=== PATIENT | female | born 1990 | race Caucasian/White ===

== ENCOUNTER 2020-02-28 19:35 | Emergency (ER) | payer OTHER, SELFPAY ==
[2020-02-28 19:51] VITALS: BP 95/55; PULSE 74; RESP 14; TEMP 36.9; O2SAT 99
--- NOTE | 2020-02-28 19:52 | ED.WOUNDLAC ---
HPI - Wound/Laceration General Chief Complaint: Skin/Abscess/Foreign Body Stated Complaint: cut leg Source: patient Mode of arrival: ambulatory Limitations: no limitations History of Present Illness HPI narrative: patient was moving all now however starters metal bed and she scraped her leg up against it. she has no injury anywhere other than her left leg . Onset (ago): minute(s) Extremity Location: Right: lower leg Place: home Patient tetanus UTD: No ( Patient is unsure if her tetanus is up-to-date or not) Context: accidental Associated symptoms: none Related Data Home Medications Medication Instructions Recorded Confirmed No Home Medications 02/28/20 02/28/20 Allergies Allergy/AdvReac Type Severity Reaction Status Date / Time No Known Allergies Allergy Verified 02/28/20 19:50 Review of Systems Review of Systems: All systems reviewed & are unremarkable except as noted in HPI and below Constitutional: Constitutional: Reports no additional constitutional complaints ENT: Reports system reviewed and no additional complaints, except as documented Cardiovascular: Cardiovascular: Reports no additional cardiovascular complaints Respiratory: Respiratory: Reports no additional respiratory complaints Gastrointestinal: Gastrointestinal: Reports no additional gastrointestinal complaints Musculoskeletal: Musculoskeletal: Reports no additional musculoskeletal complaints Comments: pain and bruising in right leg Neurologic: Reports system reviewed and no additional complaints, except as documented Psychiatric: Psychiatric: Reports no additional psychiatric complaints Endocrine: Endocrine: Reports no additional endocrine complaints Hematologic/Lymphatic: Hematologic/Lymphatic: Reports no additional hematologic/lymphatic complaints Allergic/Immunologic: Allergic/Immunologic: Reports no additional allergic/immunologic complaints [facility] Social History Social History (Updated 02/28/20 @ 19:54 by Pau Astudillo MD) Smoking status: Never smoker Alcohol intake: never Substance use: never Gender identity (if verbalized by the patient): Female Exam Const: General: no acute distress Eyes: Conjunctivae: conjunctivae normal Resp: Effort & Inspection: normal respiratory effort Skin: General skin exam: normal color Wounds: no wounds ( approximately 5 in long abrasion on the right leg there is some bruising ) Other: is approximately 5 in long abrasion to the right leg there is some bruising posterior to the abrasion however it is not a deep laceration and bleeding is controlled and there would be very little benefit from sutures Neuro: General: patient oriented x3 Psych: Appearance: grossly normal Mental Status: mental status grossly normal Thought content: Yes Normal thought content present Procedures Laceration Laceration 1: Date: 02/28/20 Time: 19:57 Site: other ( leg) Side (If applicable): right Description: linear Local Anesthetic: none Pre-repair: other ( wound clean with skin cleanser wound was very superficial no foreign bodies appreciated) ====== Skin Level ====== Skin layer closed with: steri strips ====== Subcutaneous Layer ====== ====== Muscle Layer ====== ====== Tendon Layer ====== Discharge Plan Discharge Clinical Impression: Abrasion hip/leg Qualifiers: Encounter type: initial encounter Laterality: right Qualified Code(s): S80.811A - Abrasion, right lower leg, initial encounter Patient Disposition: Home, Self-Care Condition: Stable Instructions: Antibiotic Form Prescriptions: No Action No Home Medications RF: 0 Follow-up/Referrals: Julia,MD Kojo [Primary Care Provider] - Time of Disposition: 20:00
[2020-02-28] MEDS: TETANUS,DIPHTHERIA,AC PERTUSSIS ADULT 0.5 ML (ADACEL) IM (19:59)
== END 2020-02-28 20:05 | disposition home or self-care (01) ==
PROVIDERS: Emergency Provider Emergency Medicine; PCP Family Medicine
DX: S80.811A Abrasion, right lower leg, initial encounter (principal); W45.8XXA Other foreign body or object entering through skin, initial encounter
CPT/HCPCS: 90471; 90715; 99282

== ENCOUNTER 2020-08-27 15:07 | Outpatient (CLI) | payer OTHER, SELFPAY ==
[2020-08-27 16:03] LABS: SARS-CoV-2 Ag Negative (Negative)
[2020-08-28] LABS: SARS-CoV-2 RNA PCR Negative
== END 2020-08-27 15:08 | disposition home or self-care (01) ==
LOC: CHSLAB 15:10
PROVIDERS: PCP Family Medicine; Visit Provider Nurse Practitioner Psychiatric/Mental Health
DX: J02.9 Acute pharyngitis, unspecified (principal)
CPT/HCPCS: 87426; C9803; U0003; U0005

== ENCOUNTER 2021-05-28 16:31 | Outpatient (CLI) | payer OTHER, SELFPAY ==
[2021-05-28 17:35] LABS: SARS-CoV-2 Ag Negative (Negative)
== END 2021-05-28 16:32 | disposition home or self-care (01) ==
LOC: CHSLAB 16:39
PROVIDERS: PCP Family Medicine; Visit Provider Nurse Practitioner Psychiatric/Mental Health
DX: Z11.59 Encounter for screening for other viral diseases (principal)
CPT/HCPCS: 87426; C9803

== ENCOUNTER 2021-11-12 14:56 | Emergency (ER) | payer OTHER, SELFPAY ==
--- NOTE | ~2021-11-12 | XR_ITS ---
EXAM: XR hand LT min 3V, XR forearm LT 2V HISTORY: pain @ lateral side of forearm/hand after fall today COMPARISON: None available FINDINGS: Normal mineralization. No fracture or dislocation. No lytic or blastic lesion. Joint space s maintained. No erosion or periosteal change. Soft tissues within normal limits. IMPRESSION: No acute osseous finding in the left hand or forearm. Reviewed, dictated and finalized at location K. IMPRESSION: No acute osseous finding in the left hand or forearm.
[2021-11-12 15:10] VITALS: BP 121/75; PULSE 83; RESP 20; TEMP 36.3; O2SAT 99
[2021-11-12] MEDS: ACETAMINOPHEN 325 MG TABLET 650 MG (15:41)
--- NOTE | 2021-11-12 15:59 | ED.UPPEXIN ---
HPI - Extremity Injury (Upper) General Chief Complaint: Extremity Injury, Upper Stated Complaint: LT arm injury Time Seen by Provider: 11/12/21 14:58 Source: patient and RN notes reviewed Mode of arrival: ambulatory Limitations: no limitations History of Present Illness complaint: injury to: left, forearm and hand Onset (ago): day(s) Other Extremity Injury: Left: forearm Other injuries: none Place: home Severity: mild Severity scale (1-10): 3 Relieving factors: cold therapy Exacerbating factors: movement of extremity Context: fall Associated symptoms: denies other symptoms Treatments prior to arrival: cold therapy Related Data Home Medications Medication Instructions Recorded Confirmed Suboxone 2 mg BYMOUTH DAILY 11/12/21 11/12/21 Allergies Allergy/AdvReac Type Severity Reaction Status Date / Time No Known Allergies Allergy Verified 02/28/20 19:50 Review of Systems Review of Systems: All systems reviewed & are unremarkable except as noted in HPI and below PMFSH Past Medical History Medical History Contusion of forearm, left Social History Social History Smoking status: Never smoker Alcohol intake: never Substance use: never Substance use type: former substance user Gender identity (if verbalized by the patient): Female Exam Const: General: cooperative, healthy appearing, no acute distress and awake Nutritional Appearance: thin Orientation/consciousness: patient oriented x3 Limitations: no limitations HENMT: Head: normal to inspection, normocephalic and atraumatic Ears: hearing grossly normal bilaterally, external ears normal, TM's normal bilaterally and EAC's normal General nose exam: Normal external nose present and Normal nares present Face and sinus: normal facial exam and sinuses nontender Mouth: Yes Normal oral and palatal mucosa present, Yes oropharynx normal and Yes moist mucous membranes Throat: posterior oropharynx normal Eyes: General: appearance normal, both eyes and all related structures Periorbital: periorbital findings normal Eyelids: eyelids normal Conjunctivae: conjunctivae normal Sclera: sclerae normal Cornea: corneas normal Pupils: Equal, round and reactive pupils present and Pupils normal by confrontation EOM: EOMs intact bilaterally Neck: Neck: normal visual inspection, full ROM and no lymphadenopathy Chest: Chest palpation & inspection: normal inspection of the chest and normal palpation of entire chest wall Resp: Effort & Inspection: normal respiratory effort and able to speak in complete sentences Auscultation: clear to auscultation bilaterally Cardio: Palpation: normal PMI Rate: regular rate Rhythm: regular rhythm Peripheral pulses: Peripheral pulses 2+ throughout GI: GI Palp: No abdominal tenderness Auscultation: normal bowel sounds : General: Yes bladder normal to inspection and Yes bladder normal to palpation Back/Spine/Pelvis: Back: no CVA tenderness Skin: General skin exam: normal color, no rashes or lesions noted and turgor normal Neuro: General: patient oriented x3 and moves all extremities Cognition (Neuro): normal cognition Speech: normal speech Gait exam (Neuro): Normal gait present Motor exam (neuro): 5/5 motor strength present throughout Extrem: General: full ROM, capillary refill normal and other (left palmar mid-shaft to distal forearm: minimally tender with no acute red) Right upper extremity: full ROM and normal capillary refill Psych: Appearance: grossly normal and well kempt Affect: normal affect Attitude: cooperative Thought process: Normal thought process present Thought content: Yes Normal thought content present Course Course Emergency Course: Pt was stable in the ED Reevaluation(s) Date: 11/12/21 Time: 15:32 Vital Signs Vital signs: Vital Signs Temperature 36.3 C L 11/12/21 15:10 Pulse Rate 83
[2021-11-12 16:24] VITALS: BP 121/75; PULSE 83; RESP 20; TEMP 36.3; O2SAT 99
== END 2021-11-12 16:26 | disposition home or self-care (01) ==
PROVIDERS: Emergency Provider Emergency Medicine; PCP Family Medicine
DX: S50.12XA Contusion of left forearm, initial encounter (principal); W19.XXXA Unspecified fall, initial encounter
CPT/HCPCS: 73090; 73130; 99283; A4565; A9270

== ENCOUNTER 2022-09-25 23:14 | Emergency (ER) | payer OTHER, SELFPAY ==
--- NOTE | 2022-09-25 23:22 | ED.ABDPAIN ---
HPI - Abdominal Pain General Chief Complaint: Abdominal Pain Stated Complaint: Right side abd pain Time Seen by Provider: 09/25/22 23:19 History of Present Illness HPI narrative: 32-year-old female patient is here with complaints of pain in the right abdomen for the last couple of days worse today. She has had mild nausea but no emesis. She has had normal bowel movement. She has had no urinary symptoms. She states that her appetite has normally been low because of her being under stress constantly. She denies any fever or chills. Patient states that they had a stomach flu bug going around the house in the last week or so. Patient describes the pain as dull ache and it does radiate to the more mid abdomen. Patient states that she is currently on Suboxone for having had opioid abuse in the past. She is also taking medications for her bipolar depression Related Data Home Medications Medication Instructions Recorded Confirmed Suboxone 2 mg BYMOUTH DAILY 11/12/21 11/12/21 bupropion HCl 300 mg 24 hr tablet, 300 mg PO DAILY 09/25/22 09/25/22 extended release hydroxyzine pamoate 25 mg capsule 25 mg PO TID 09/25/22 09/25/22 lamotrigine 25 mg tablet 25 mg PO DAILY 09/25/22 09/25/22 prazosin 1 mg capsule 1 mg PO DAILY 09/25/22 09/25/22 Allergies Allergy/AdvReac Type Severity Reaction Status Date / Time No Known Allergies Allergy Verified 02/28/20 19:50 Review of Systems Review of Systems: All systems reviewed & are unremarkable except as noted in HPI and below Constitutional: Constitutional: Reports no additional constitutional complaints Eyes: Eyes: Reports no additional eye complaints ENT: Reports system reviewed and no additional complaints, except as documented Cardiovascular: Cardiovascular: Reports no additional cardiovascular complaints Respiratory: Respiratory: Reports no additional respiratory complaints Gastrointestinal: Gastrointestinal: Reports no additional gastrointestinal complaints Genitourinary: Genitourinary: Reports no additional female genitourinary complaints Musculoskeletal: Musculoskeletal: Reports no additional musculoskeletal complaints Integumentary/Breasts: Skin/Breast: Reports system reviewed and no additional complaints, except as docu Neurologic: Reports system reviewed and no additional complaints, except as documented Psychiatric: Psychiatric: Reports anxiety Endocrine: Endocrine: Reports no additional endocrine complaints Hematologic/Lymphatic: Hematologic/Lymphatic: Reports no additional hematologic/lymphatic complaints Allergic/Immunologic: Allergic/Immunologic: Reports no additional allergic/immunologic complaints PMFSH Past Medical History Medical History Contusion of forearm, left Social History Social History Smoking status: Never smoker Alcohol intake: never Substance use: never Substance use type: former substance user Gender identity (if verbalized by the patient): Female Exam Const: General: healthy appearing, no acute distress and alert Nutritional Appearance: well nourished Orientation/consciousness: patient oriented x3 Limitations: no limitations HENMT: Head: normal to inspection Face and sinus: normal facial exam Mouth: Yes Normal oral and palatal mucosa present Teeth and gingiva: dentition normal Throat: posterior oropharynx normal Eyes: Conjunctivae: conjunctivae normal Pupils: Equal, round and reactive pupils present EOM: EOMs intact bilaterally Direct Ophthalmoscopy: no photophobia Neck: Neck: normal visual inspection Chest: Chest palpation & inspection: normal inspection of the chest Resp: Effort & Inspection: normal respiratory effort Auscultation: clear to auscultation bilaterally Cardio: Rate: regular rate Rhythm: regular rhythm Heart sounds: no murmurs GI: GI Palp: Yes Soft to palpation, Yes Tenderness to palpat
[2022-09-25 23:26] LABS: Appearance Urine Clear (Clear); Bilirubin Urine Negative (Negative); Blood Urine Negative (Negative); Color Urine Light Yellow (Yellow); Glucose Urine UA Negative (Negative); Ketones Urine Negative (Negative); Leukocyte Esterase Ur Negative LEU/UL (Negative); Nitrate Urine Negative (Negative); Protein Urine Negative (Negative); Urobilinogen Urine 0.2 mg/dL (0.2-1.0); pH Urine 6.5 (5.0-8.0)
[2022-09-25 23:28] LABS: Add Urine Microscopic? NO
[2022-09-25 23:30] VITALS: BP 107/66; PULSE 80; RESP 18; TEMP 36.6; O2SAT 100
[2022-09-25 23:37] LABS: Basophils Absolute Auto 0.07 K/mm3 (0.00-0.10); Basophils Percent Auto 1.1 % (0.0-1.0); Eosinophils Absolute Auto 0.34 K/mm3 (0.02-0.50); Eosinophils Percent Auto 5.3 % (1.0-6.0); Hematocrit 32.6 % (35.0-49.0); Hemoglobin 11.1 g/dL (12.0-15.0); Immature Granulocyte Absolute 0.02 K/mm3 (0.00-0.00); Immature Granulocyte Percent A 0.3 % (0.0-0.0); Lymphocytes Absolute Auto 1.92 K/mm3 (1.10-4.50); Lymphocytes Percent Auto 29.7 % (18.0-42.0); Mean Corpuscular Hemoglobin 28.5 pg (27.0-31.0); Mean Corpuscular Volume 83.6 fL (78.0-102.0); Mean Platelet Volume 9.4 fl (9.2-11.8); Monocytes Absolute Auto 0.72 K/mm3 (0.10-0.90); Monocytes Percent Auto 11.1 % (2.0-11.0); Neutrophils Absolute Auto 3.4 K/mm3 (1.7-7.2); Neutrophils Percent Auto 52.5 % (50.0-70.0); Platelet Count Result 388 K/mm3 (150-420); Red Cell Distribution Width 12.1 % (11.6-14.4); White Blood Count 6.5 K/mm3 (4.8-10.8)
[2022-09-25 23:52] LABS: Alanine Aminotransferase 26 U/L (14-59); Albumin Level 3.3 g/dL (3.4-5.0); Alkaline Phosphatase 66 U/L (46-116); Anion Gap 7 mmol/L (8-16); Aspartate Amino Transferase 17 U/L (15-37); Bilirubin,Total 0.3 mg/dL (0.00-1.00); Blood Urea Nitrogen 7 mg/dL (7-18); Calcium 8.7 mg/dL (8.5-10.1); Carbon Dioxide 29 mmol/L (21-32); Chloride 105 mmol/L (98-108); Estimated CRCL calculation 73 ml/min; Estimated Glomerular Filt Rate > 60; Glucose 93 mg/dL (70-99); Osmolality Calculated 290 mOsm/kg (285-295); Potassium 3.8 mmol/L (3.5-5.1); Sodium 141 mmol/L (136-145); Total Protein 7.7 g/dL (6.4-8.2)
[2022-09-26 00:12] VITALS: BP 109/80; PULSE 72; RESP 20; TEMP 36.6; O2SAT 98
== END 2022-09-26 00:13 | disposition home or self-care (01) ==
PROVIDERS: Emergency Provider Emergency Medicine; PCP Family Medicine
DX: R10.9 Unspecified abdominal pain (principal)
CPT/HCPCS: 36415; 80053; 81003; 85025; 99283

== ENCOUNTER 2023-05-23 18:35 | Emergency (ER) | payer OTHER, SELFPAY ==
--- NOTE | ~2023-05-23 | XR_ITS ---
EXAM: XR wrist RT w scaphoid DATE: 05/23/2023 19:05 HISTORY: right wrist pain and swelling after striking injury. . COMPARISON: None available. FINDINGS: Normal mineralization. No fracture or dislocation. No lytic or blastic lesion. Joint space s are maintained. No erosion or periosteal change. Soft tissues within normal limits. IMPRESSION: No acute osseous finding in the right wrist. Reviewed, dictated and finalized at location K. [employer]
[2023-05-23 18:35] VITALS: BP 122/78; PULSE 101; RESP 16; TEMP 37.1; O2SAT 99
--- NOTE | 2023-05-23 18:52 | ED.GENADULT ---
HPI - General Adult General Chief complaint: Extremity Injury, Upper Stated complaint: right wrist injury Time Seen by Provider: 05/23/23 18:51 History of Present Illness HPI narrative: Amy is a 33F with a PMH of a mood disorder that presented to the ED after she hit her right wrist on the wall when she was taking her arm out of her coat. She had pain and swelling since. No other trauma reported. Related Data Home Medications Medication Instructions Recorded Confirmed Suboxone 2 mg BYMOUTH DAILY 11/12/21 09/25/22 bupropion HCl 300 mg 24 hr tablet, 300 mg PO DAILY 09/25/22 09/25/22 extended release hydroxyzine pamoate 25 mg capsule 25 mg PO TID 09/25/22 09/25/22 lamotrigine 25 mg tablet 25 mg PO DAILY 09/25/22 09/25/22 prazosin 1 mg capsule 1 mg PO DAILY 09/25/22 09/25/22 Allergies Allergy/AdvReac Type Severity Reaction Status Date / Time Penicillins AdvReac Hives Verified 05/23/23 19:31 [facility] Past Medical History Medical History Contusion of forearm, left Social History Social History Smoking status: Never smoker Alcohol intake: never Substance use: never Substance use type: former substance user Gender identity (if verbalized by the patient): Female Exam Const: General: cooperative, healthy appearing, comfortable, no acute distress, well developed, alert, awake and Physically active Orientation/consciousness: oriented to person, oriented to place and oriented to time HENMT: Head: normal to inspection, normocephalic and atraumatic Ears: hearing grossly normal bilaterally and external ears normal Face/Nose/Sinus: Normal external nose present Eyes: General: appearance normal, both eyes and all related structures Periorbital: periorbital findings normal Sclera: sclerae normal Pupils: Equal, round and reactive pupils present Neck: Neck: normal visual inspection Chest: Chest palpation & inspection: normal inspection of the chest Resp: Effort & Inspection: normal respiratory effort, able to speak in complete sentences and no respiratory distress Cardio: Jugular venous distension: no JVD Skin: General skin exam: normal color and no rashes or lesions noted Neuro: General: oriented to person, oriented to place and oriented to time Cranial nerves: Yes Equal, round and reactive pupils present Extrem: General: normal to inspection Other: Right medial wrist was TTP Course Course Emergency Course: Care assumed from Dr. Frey at 1845. Ordered radiographs. EXAM:? XR wrist RT w scaphoid DATE: 05/23/2023 19:05 HISTORY: right wrist pain and swelling after striking injury. . COMPARISON:? None available. FINDINGS:? Normal mineralization. No fracture or dislocation. No lytic or blastic lesion. Joint spaces are maintained. No erosion or periosteal change. Soft tissues within normal limits. IMPRESSION: No acute osseous finding in the right wrist. Vital Signs Vital signs: Vital Signs Temperature 98.7 F 05/23/23 18:35 Pulse Rate 101 H 05/23/23 18:35 Respiratory Rate 16 05/23/23 18:35 Blood Pressure 122/78 05/23/23 18:35 Pulse Oximetry 99 05/23/23 18:35 Oxygen Delivery Room Air 05/23/23 18:35 Temperature 98.7 F 05/23/23 18:35 Pulse Rate 101 H 05/23/23 18:35 Respiratory Rate 16 05/23/23 18:35 Blood Pressure 122/78 05/23/23 18:35 Pulse Oximetry 99 05/23/23 18:35 Oxygen Delivery Room Air 05/23/23 18:35 Medical Decision Making Vital Signs Vital Signs: Vital Signs Temperature 98.7 F 05/23/23 18:35 Pulse Rate 101 H 05/23/23 18:35 Respiratory Rate 16 05/23/23 18:35 Blood Pressure 122/78 05/23/23 18:35 Pulse Oximetry 99 05/23/23 18:35 Oxygen Delivery Room Air 05/23/23 18:35 Temperature 98.7 F 05/23/23 18:35 Pulse Rate 101 H 05/23/23 18:35 Respiratory Rate 16 05/23/23 18:35 Blood Pressure
== END 2023-05-23 19:45 | disposition home or self-care (01) ==
PROVIDERS: Emergency Provider Family Medicine; PCP Family Medicine
DX: S60.211A Contusion of right wrist, initial encounter (principal); W22.09XA Striking against other stationary object, initial encounter
CPT/HCPCS: 73110; 99283

== ENCOUNTER 2023-10-18 17:15 | Emergency (ER) | payer OTHER, SELFPAY ==
--- NOTE | ~2023-10-18 | CT_ITS ---
EXAMINATION: CT abdomen pelvis w con DATE: 10/18/2023 18:46 INDICATION: Right upper quadrant abdominal pain. TECHNIQUE: Computed tomography (CT) of the abdomen and pelvis was performed with 100 mL Omnipaque 350 intravenous contrast. Automated exposure control and iterative reconstruction technique were employe d. The dose-length product was 221.06 mGy-cm. COMPARISON: None. FINDINGS: The visualized portions of lung bases are clear without pneumonia or pleural effusion. The heart size is normal. No pericardial effusion. The liver is normal. There are gallstones in the gallb ladder, which is distended. Gallbladder wall thickening is noted. The spleen, pancreas, adrenal gland s, and left kidney are normal. There is a 2.7 cm cyst in right kidney. There are no dilated loops of bowel. There is a large volume of stool in the proximal colon. There are no pathologically enlarged l ymph nodes. There is no free intraperitoneal fluid. There is mild thoracic spondylosis. IMPRESSION: 1. Acute cholecystitis. Reviewed, dictated and finalized at location E. IMPRESSION: 1. Acute cholecystitis.
[2023-10-18 17:15] VITALS: BP 105/90; PULSE 73; RESP 20; TEMP 36.6; O2SAT 100
--- NOTE | 2023-10-18 17:27 | ED.GENADULT ---
HPI - General Adult General Chief complaint: Abdominal Pain Stated complaint: right side abdominal pain Time Seen by Provider: 10/18/23 17:24 History of Present Illness HPI narrative: This is a 33-year-old female with history opiate use disorder on Suboxone, and methamphetamine abuse and bipolar disorder presenting for RUQ abdominal pain. Patient started when she woke up this morning. It is a sharp pain that is nonradiating, constant. She has never had pain like this before there are no alleviating or exacerbating factors. patient had 1 episode of nausea vomiting on route to the hospital. Last bowel movement was yesterday and was normal. Patient denies fever chills chest pain difficulty breathing or urinary symptoms. 3-4 days ago the patient flu-like symptoms with nausea vomiting and diarrhea. She was improving until today when the pain started. Related Data Home Medications Medication Instructions Recorded Confirmed Suboxone 2 mg BYMOUTH DAILY 11/12/21 10/18/23 bupropion HCl 300 mg 24 hr tablet, 300 mg PO DAILY 09/25/22 10/18/23 extended release hydroxyzine pamoate 25 mg capsule 25 mg PO TID 09/25/22 10/18/23 lamotrigine 25 mg tablet 25 mg PO DAILY 09/25/22 10/18/23 prazosin 1 mg capsule 1 mg PO DAILY 09/25/22 10/18/23 Allergies Allergy/AdvReac Type Severity Reaction Status Date / Time Penicillins AdvReac Hives Verified 10/18/23 17:33 [facility] Past Medical History Medical History Bipolar disorder Contusion of forearm, left Methamphetamine use Opiate dependence Social History Social History Smoking status: Never smoker Alcohol intake: never Substance use: never Substance use type: former substance user Gender identity (if verbalized by the patient): Female Exam Narrative: APPEARANCE: No apparent distress. Head: atraumatic. edentulous EYES: EOMI, NOSE: Atraumatic NECK: Trachea midline RESPIRATORY: No increased rate of breathing, ctab CARDIOVASCULAR: RRR, ABDOMINAL: Abdomen is soft nontender with no guarding or rebound, special attention paid to the right upper quadrant and I am unable to elicit a grimace with deep palpation. MUSCULOSKELETAl: No obvious deformities NEURO: Alert. Moving 4/4 extremities SKIN:: Warm, dry. Normal color PSYCHIATRIC: Normal affect Course Vital Signs Vital signs: Vital Signs Temperature 97.9 F 10/18/23 17:15 Pulse Rate 73 10/18/23 17:15 Respiratory Rate 20 10/18/23 17:15 Blood Pressure 105/90 10/18/23 17:15 Pulse Oximetry 100 10/18/23 17:15 Oxygen Delivery Room Air 10/18/23 17:15 Temperature 97.9 F 10/18/23 17:15 Pulse Rate 73 10/18/23 17:15 Respiratory Rate 20 10/18/23 17:15 Blood Pressure 105/90 10/18/23 17:15 Pulse Oximetry 100 10/18/23 17:15 Oxygen Delivery Room Air 10/18/23 17:15 Medical Decision Making MDM Narrative Medical decision making narrative: -Course: 33-year-old female presenting with right-sided abdominal pain. CT was read as acute cholecystitis. Patient has NO tenderness in the right upper quadrant on initial and re-evaluation. white count 10.9. No elevations in liver enzymes. Vital signs are stable and the patient has been eating candy and drinking soda while in the emergency department. Case was discussed with Dr. Olmos. Patient will be discharged on antibiotics, antiemetics, and pain control to follow-up tomorrow in the surgical clinic. Given return precautions for fevers severe abdominal pain or intractable nausea vomiting. Lactic acid 2.3 -> 2.7. Patient was again re-evaluated before discharge and is still resting comfortably in bed. Her abdominal exam is benign, her vital signs are completely normal. She is eating and drinking in the room. Clinically the patient the patient looks well and states she feels good. She would like to follow up tomorrow. I
[2023-10-18 17:44] LABS: Basophils Absolute Auto 0.04 K/mm3 (0.00-0.10); Basophils Percent Auto 0.4 % (0.0-1.0); Eosinophils Percent Auto 1.8 % (1.0-6.0); Hemoglobin 11.8 g/dL (12.0-15.0); Immature Granulocyte Absolute 0.05 K/mm3 (0.00-0.00); Immature Granulocyte Percent A 0.5 % (0.0-0.0); Lymphocytes Absolute Auto 2.18 K/mm3 (1.10-4.50); Lymphocytes Percent Auto 20.1 % (18.0-42.0); Mean Corpuscular HGB Conc 32.8 g/dL (32-36); Mean Corpuscular Hemoglobin 27.9 pg (27.0-31.0); Mean Corpuscular Volume 85.1 fL (78.0-102.0); Mean Platelet Volume 8.7 fl (9.2-11.8); Monocytes Absolute Auto 1.09 K/mm3 (0.10-0.90); Neutrophils Percent Auto 67.2 % (50.0-70.0); Platelet Count Result 386 K/mm3 (150-420); Red Blood Count 4.23 M/mm3 (4.20-5.40); Red Cell Distribution Width 12.8 % (11.6-14.4); White Blood Count 10.9 K/mm3 (4.8-10.8)
[2023-10-18 17:49] LABS: Glucose Point of Care 105 mg/dl (65-105)
[2023-10-18] MEDS: SODIUM CHLORIDE 0.9% IV 2,000 ML 999 ML IV CONT (17:57)
[2023-10-18] MEDS: FAMOTIDINE 20 MG/2 ML VIAL IV PUSH (17:58)
[2023-10-18] MEDS: KETOROLAC 15 MG/ML VIAL (*BKC) IV PUSH (17:58)
[2023-10-18 18:02] LABS: Alanine Aminotransferase 57 U/L (14-59); Albumin Level 3.1 g/dL (3.4-5.0); Alkaline Phosphatase 66 U/L (46-116); Anion Gap 9 mmol/L (4-12); Aspartate Amino Transferase 24 U/L (15-37); Bilirubin,Total 0.1 mg/dL (0.00-1.00); Blood Urea Nitrogen 15 mg/dL (7-18); Calcium 8.9 mg/dL (8.5-10.1); Carbon Dioxide 28 mmol/L (21-32); Chloride 102 mmol/L (98-108); Estimated CRCL calculation 84 ml/min; Estimated Glomerular Filt Rate > 60; Glucose 97 mg/dL (70-99); Lipase 27 U/L (16-77); Osmolality Calculated 288 mOsm/kg (285-295); Sodium 139 mmol/L (136-145); Total Protein 6.7 g/dL (6.4-8.2)
[2023-10-18 18:07] LABS: Appearance Urine Clear (Clear); Bilirubin Urine Negative (Negative); Blood Urine Negative (Negative); Color Urine Yellow (Yellow); Glucose Urine UA Negative (Negative); Ketones Urine Negative (Negative); Leukocyte Esterase Ur 1+ LEU/UL (Negative); Nitrate Urine Negative (Negative); Protein Urine Trace (Negative); Specific Grav Ur 1.015 (1.010-1.020); Urobilinogen Urine 0.2 mg/dL (0.2-1.0); pH Urine 8.5 (5.0-8.0)
[2023-10-18 18:08] LABS: Lactic Acid Reflex 2.3 mmol/L (0.4-2.0)
[2023-10-18 18:16] LABS: Pregnancy On Board Control Positive; Urine Pregnancy Test Negative
[2023-10-18 18:16] LABS: Amphetamine Screen Urine Positive (Negative); Barbiturate Screen Urine Negative (Negative); Benzodiazepines Screen Urine Negative (Negative); Cannabinoid Screen Urine Negative (Negative); Cocaine Screen Urine Negative (Negative); Methadone Screen Urine Negative (Negative); Opiate Screen Urine Negative (Negative); Phencyclidine Screen Urine Negative (Negative)
[2023-10-18 18:17] LABS: Add Urine Microscopic? YES; Amorphous Sediment Urine Moderate; Bacteria Urine 2+ /hpf; RBC Urine 0-2 /hpf (0-2); Squamous Epithelial Cell Urine None seen /hpf (Few)
[2023-10-18 18:21] LABS: SARS-CoV-2 RNA PCR Negative (Negative)
[2023-10-18 18:22] LABS: Influenza A QL RT-PCR Negative (Negative); Influenza B QL RT-PCR Negative (Negative); RSV RNA, RT-PCR Negative (Negative)
[2023-10-18] MEDS: CIPROFLOXACIN 400 MG/D5W 200ML 200 ML 200 MG IVPB (20:01)
[2023-10-18] MEDS: POTASSIUM CHLORIDE 20 MEQ ER TABLET 40 MEQ PO (20:02)
[2023-10-18 20:11] LABS: Reflex Lactic Acid Yes or No Add Lactic
[2023-10-18 20:49] LABS: Lactic Acid 2.7 mmol/L (0.4-2.0)
[2023-10-18 21:19] VITALS: BP 122/76; PULSE 78; RESP 20; TEMP 36.6; O2SAT 98
== END 2023-10-18 21:19 | disposition home or self-care (01) ==
PROVIDERS: Emergency Provider Emergency Medicine; PCP Family Medicine
DX: K81.9 Cholecystitis, unspecified (principal); F31.9 Bipolar disorder, unspecified; F11.90 Opioid use, unspecified, uncomplicated; F15.10 Other stimulant abuse, uncomplicated; Z20.822 Contact with and (suspected) exposure to COVID-19
CPT/HCPCS: 36415; 74177; 80053; 80307; 81001; 81025; 82948; 83605; 83690; 85025; 87086; 87088; 87637; 96361; 96365; 96375; 99284; A9270; J0744; J1885; J7030; Q9967

== ENCOUNTER 2023-10-24 10:56 | Inpatient (IN) | payer OTHER, SELFPAY ==
[2023-10-24] VITALS (10 sets, daily range): BP systolic 99–125; BP diastolic 57–70; PULSE 69–86; RESP 15–18; TEMP 36.4–36.6; O2SAT 99–100
--- NOTE | ~2023-10-24 | US_ITS ---
EXAMINATION: US abdomen limited DATE: 10/24/2023 14:26 INDICATION: Right upper quadrant abdominal pain. TECHNIQUE: Multiple grayscale and Doppler ultrasound images of the abdomen were obtained. COMPARISON: CT abdomen pelvis 10/18/23 FINDINGS: The visualized portions of the head and body of the pancreas are normal. The liver is alex l without focal lesion. There is normal flow in main portal vein. The gallbladder is normal in size a nd contains gallstones. Gallbladder wall thickening is noted. There was a positive sonographic Partida sign. The common duct is mildly dilated and measures 10 mm. IMPRESSION: 1. Cholelithiasis, gallbladder wall thickening, and positive sonographic Partida sign, but no gallblad yvonne distention to suggest acute cholecystitis. Consider hepatobiliary scintigraphy. 2. Mildly dilated common duct. Reviewed, dictated and finalized at location E. IMPRESSION: 1. Cholelithiasis, gallbladder wall thickening, and positive sonographic Partida sign, but no gallbladder distention to suggest acute cholecystitis. Consider h epatobiliary scintigraphy. 2. Mildly dilated common duct.
--- NOTE | 2023-10-24 11:32 | PC.NURSE ---
pt is unable to urinate at this time. educated pt to use call light with any urge to collect a sample.
[2023-10-24 11:35] LABS: Basophils Absolute Auto 0.1 K/mm3 (0.0-0.1); Basophils Percent Auto 1.2 % (0.2-1.2); Eosinophils Absolute Auto 0.3 K/mm3 (0-0.3); Eosinophils Percent Auto 4.1 % (0-4.4); Hemoglobin 12.4 g/dL (12.0-15.0); Immature Granulocyte Absolute 0.02 K/mm3 (0.00-0.031); Immature Granulocyte Percent A 0.3 % (0-0.5); Lymphocytes Absolute Auto 2.47 K/mm3 (0.9-3.2); Lymphocytes Percent Auto 33.6 % (18.3-44.2); Mean Corpuscular HGB Conc 33.5 g/dl (32-36); Mean Corpuscular Hemoglobin 28.2 pg (26-34); Mean Corpuscular Volume 84.3 fl (80-100); Mean Platelet Volume 8.8 fl (7.4-10.4); Monocytes Absolute Auto 0.7 K/mm3 (0.1-0.6); Monocytes Percent Auto 9.9 % (2.6-8.5); Neutrophils Absolute Auto 3.7 K/mm3 (1.3-6.7); Neutrophils Percent Auto 50.9 % (45.5-73.1); Platelet Count Result 462 k/mm3 (150-375); Red Blood Count 4.39 M/mm3 (4.2-5.4); Red Cell Distribution Width 12.8 % (11.5-14.5); White Blood Count 7.4 K/mm3 (4.5-10.0)
[2023-10-24 11:55] LABS: Alanine Aminotransferase 20 U/L (6-35); Albumin Level 4.4 g/dL (3.5-5.1); Alkaline Phosphatase 59 U/L (38-126); Anion Gap 6 mmol/L (4-12); Aspartate Amino Transferase 24 U/L (14-36); Bilirubin,Total 0.4 mg/dL (0.2-1.3); Blood Urea Nitrogen 13 mg/dL (7-17); Calcium 9.7 mg/dL (8.4-10.2); Carbon Dioxide 28 mmol/L (22-30); Chloride 107 mmol/L (98-107); Estimated Glomerular Filt Rate > 60; Glucose 105 mg/dL (65-110); Lipase 55 U/L (23-300); Potassium 3.3 mmol/L (3.4-5.0); Sodium 141 mmol/L (137-145)
[2023-10-24] MEDS: ONDANSETRON INJ 4 MG/2 ML VIAL IV PUSH ×2 (12:55→21:02)
[2023-10-24 13:04] LABS: Appearance Urine Clear (Clear); Bacteria Urine None Seen /hpf; Bilirubin Urine Negative (Negative); Blood Urine Negative (Negative); Calcium Oxalate Crystals Urine Present /hpf; Color Urine Dark Yellow (Yellow); Glucose Urine UA Negative (Negative); Ketones Urine Negative (Negative); Leukocyte Esterase Ur Negative LEU/UL (Negative); Nitrate Urine Negative (Negative); Protein Urine 1+ mg/dL (Negative); RBC Urine 0-2 /hpf (0-2); Squamous Epithelial Cell Urine Occasional /hpf (Few); WBC Urine 0-5 /hpf (0-3)
[2023-10-24 13:06] LABS: Specific Grav Ur 1.042 (1.001-1.035)
[2023-10-24 13:08] LABS: Add Urine Microscopic? YES
--- NOTE | 2023-10-24 13:33 | PM.IMHP ---
H&P: HPI History of Present Illness Date/Time: 10/24/23 13:33 Chief Complaint: ABD Pain/N/V and Diarrhea Narrative: Patient is a 33-year-old female who presents emergency department with worsening abdominal pain as well as nausea vomiting and diarrhea. Patient has a past medical history of bipolar disorder and opiate abuse currently in remission on Suboxone. The symptoms had began 3-4 days ago and patient was seen in the ER 10/18/2023 and diagnosed with acute cholecystitis. Per Medical chart Patient had NO tenderness in the right upper quadrant on initial and re-evaluation, white count 10.9.? with No elevations in liver enzymes, and was eating candy and drinking soda while in the emergency department.? Case was discussed with Dr. Olmos at that time, and they were discharged on antibiotics, antiemetics, and pain control to follow-up the next day in the surgical clinic. Patient followed-up and O/P laparoscopic cholecystomy was scheduled, patient returned to ED today because the ABD pain had worsened with N/V and unable to tolerate oral unrelieved with antiemetics. Labs reviewed and unremarkable and vitals stable. General surgery was consulted plan for laparoscopic cholecystomy tomorrow, admitted for pain control, antiemetics and IV hydration. Patient reported fevers at home prior to arrival and some relief of nausea with zofran. Patient denied CP, SOB, dizziness, or vision changes. Review of Systems Review of Systems: All systems reviewed & are unremarkable except as noted in HPI and below PMFSH Past Medical History Medical History Bipolar disorder Contusion of forearm, left Methamphetamine use Opiate dependence Surgical History Surgical History Hx LEEP (loop electrosurgical excision procedure), cervix, Family History Family History Father Diabetes mellitus Heart disease Cerebrovascular accident Other Cancer Hypertension Kidney disease Social History Social History Smoking status: Current every day smoker Tobacco type: cigarettes Second hand tobacco smoke exposure: Yes Additional smoking assessment comments: 3 cigarettes per day Alcohol intake: never Substance use: never Substance use type: former substance user Do You Feel Safe in your Home?: Yes Lack of Transportation: No Lack of Food: Never True Current Housing: I Have Housing Concerned About Future Housing: No Difficulty Paying Gas/Electric Bills: No Difficulty Paying for Meds: No Currently Unemployed: No Education: High School Diploma/GED Difficulty w/ Childcare or Family Care: No Occupation/Education: occupation 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 [employer] Gender identity (if verbalized by the patient): Female Spiritual care concerns: No Meds Home Medications and Allergies Home Medications Medication Instructions Recorded Confirmed Type Suboxone 2 mg BYMOUTH Q12H 11/12/21 10/24/23 History bupropion HCl 300 mg 24 hr tablet, 300 mg PO DAILY 09/25/22 10/24/23 History extended release hydroxyzine pamoate 25 mg capsule 25 mg PO TID PRN Nausea And 09/25/22 10/24/23 History Vomiting lamotrigine 25 mg tablet 50 mg PO DAILY 09/25/22 10/24/23 History ciprofloxacin HCl 500 mg tablet 500 mg PO Q12H #20 tabs 10/18/23 10/24/23 Rx (Cipro) ibuprofen 800 mg tablet 800 mg PO TID PRN pain 7 days #21 10/18/23 10/24/23 Rx tabs ondansetron 4 mg disintegrating 4 mg PO Q8H PRN nausea and 10/18/23 10/24/23 Rx tablet vomiting #30 tabs acetaminophen 500 mg tablet 1,000 mg PO DAILY PRN meagan 10/24/23 10/24/23 History Allergies Allergy/AdvReac Type Severity Reaction Status Date / Time Penicillins AdvReac Hives Verified 10/19/23 14:4
--- NOTE | 2023-10-24 15:14 | PC.NURSE ---
This patient, Amy Valladares, was admitted to Medical Room 340-01. Patient/family oriented to hospital policies and general routines including ID bracelet, bed and alarms, visiting hours, pain management, procedures, bathroom and other care routines, personal items, smoking policy, room service/diet, and visiting hours. Information on how to activate the Rapid Response Team has been discussed. Patient/Family are encouraged to report perceived risks to care and to ask questions if they do not understand what they are told or what they should do.
[2023-10-24] MEDS: levoFLOXacin 750 MG/D5W 150 ML 750 MG/150 ML BAG 100 MG IVPB (15:27)
[2023-10-24] MEDS: SODIUM CHLORIDE 0.9% IV 1,000 ML 100 ML IV CONT (15:27)
--- NOTE | 2023-10-24 17:11 | ED.ABDPAIN ---
HPI - Abdominal Pain General Chief Complaint: Abdominal Pain Stated Complaint: gallbladder Time Seen by Provider: 10/24/23 12:01 History of Present Illness HPI narrative: pt here with RUQ pain ongoing for the past week, was diagnosed with acute cholecystitis at another ER but there is no surgeon there so was told to follow up, planned initially for outpatient surgery however her insurance will not pay for it and her surgeon told her to come to the ER if her pain became unbearable, which it has so she is here. She takes ibuprofen and Tylenol because she is on Suboxone and does not want narcotics. Related Data Home Medications Medication Instructions Recorded Confirmed Suboxone 2 mg BYMOUTH Q12H 11/12/21 10/24/23 bupropion HCl 300 mg 24 hr tablet, 300 mg PO DAILY 09/25/22 10/24/23 extended release hydroxyzine pamoate 25 mg capsule 25 mg PO TID PRN Nausea And 09/25/22 10/24/23 Vomiting lamotrigine 25 mg tablet 50 mg PO DAILY 09/25/22 10/24/23 acetaminophen 500 mg tablet 1,000 mg PO DAILY PRN meagan 10/24/23 10/24/23 Allergies Allergy/AdvReac Type Severity Reaction Status Date / Time Penicillins AdvReac Hives Verified 10/19/23 14:46 Review of Systems Review of Systems: All systems reviewed & are unremarkable except as noted in HPI and below PMFSH Past Medical History Medical History Bipolar disorder Contusion of forearm, left Methamphetamine use Opiate dependence Surgical History Surgical History Hx LEEP (loop electrosurgical excision procedure), cervix, Family History Family History Father Diabetes mellitus Heart disease Cerebrovascular accident Other Cancer Hypertension Kidney disease Social History Social History Smoking status: Current every day smoker Tobacco type: cigarettes Second hand tobacco smoke exposure: Yes Additional smoking assessment comments: 3 cigarettes per day Alcohol intake: never Substance use: never Substance use type: former substance user Do You Feel Safe in your Home?: Yes Lack of Transportation: No Lack of Food: Never True Current Housing: I Have Housing Concerned About Future Housing: No Difficulty Paying Gas/Electric Bills: No Difficulty Paying for Meds: No Currently Unemployed: No Education: High School Diploma/GED Difficulty w/ Childcare or Family Care: No Occupation/Education: occupation 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 EYES: EOMI, conjunctiva normal ENT: Hearing grossly intact LUNGS: Nonlabored breathing. HEART: [Regular rate and rhythm] ABD: [Soft], [tender to palpation] Right upper quadrant EXT: Normal range of motion SKIN: [No rashes or lesions.] NEURO: [Alert and oriented x 3. No gross focal sensory or strength deficits.] PSYCH: Normal affect Course Vital Signs Vital signs: Vital Signs Temperature 97.6 F 10/24/23 10:57 Pulse Rate 69 10/24/23 10:57 Respiratory Rate 18 10/24/23 10:57 Blood Pressure 125/67 10/24/23 10:57 Pulse Oximetry 99 10/24/23 10:57 Oxygen Delivery Room Air 10/24/23 10:57 Temperature 97.6 F 10/24/23 15:38 Pulse Rate 80 10/24/23 15:38 Respiratory Rate 16 10/24/23 15:38 Blood Pressure 116/63 10/24/23 15:38 Pulse Oximetry 100 10/24/23 15:38 Oxygen Delivery Room Air 10/24/23 10:57 MDM - Abdominal Pain MDM Narrative Medical decision making narrative: 1) Differential diagnosis: acute
[2023-10-24] MEDS: BUPRENORPHINE/NALOXONE (*CRX) 4 MG/1 MG SL FILM 2 EACH SUBLINGUAL (17:42)
[2023-10-24] MEDS: PANTOPRAZOLE SODIUM IV 40 MG VIAL IV PUSH (21:02)
--- NOTE | 2023-10-25 01:33 | PC.NURSE ---
0050 CALLED TO ROOM WITH PATIENT STATING SHE HAS TO LEAVE AMA DUE TO SITTER ISSUES AT HOME WITH HER CHILDREN. DISCUSSED HOW IMPORTANT IT IS FOR HER TO STAY AND HAVE HER SCHEDULED LAP [facility], PATIENT INSISTS ON LEAVING. AMA DOCUMENT SIGNED AND PATIENT IV REMOVED.
== END 2023-10-25 00:50 | disposition left against medical advice (07) ==
LOC: ANHED 13:55 → ANH3MED 10-25 00:59
PROVIDERS: Preventive Medicine Aerospace Medicine; Admitting Provider Internal Medicine; Emergency Provider Emergency Medicine; PCP Family Medicine; Visit Provider Nurse Practitioner Family
DX: K80.00 Calculus of gallbladder with acute cholecystitis without obstruction (principal); F31.9 Bipolar disorder, unspecified; F19.11 Other psychoactive substance abuse, in remission; F17.210 Nicotine dependence, cigarettes, uncomplicated
CPT/HCPCS: 36415; 76705; 80053; 81001; 81025; 83690; 85025; 96374; 99285; A9270; C9113; J1956; J2405; J7030

== ENCOUNTER 2023-10-25 02:41 | Observation (INO) | payer OTHER, SELFPAY ==
[2023-10-25] VITALS (17 sets, daily range): BP systolic 96–136; BP diastolic 53–77; PULSE 52–115; RESP 14–23; TEMP 36.4–37.1; O2SAT 96–100; BMI 21.4
--- NOTE | 2023-10-25 03:01 | ED.GENADULT ---
HPI - General Adult General Chief complaint: Abdominal Pain Stated complaint: gallbladder Time Seen by Provider: 10/25/23 02:50 History of Present Illness HPI narrative: Patient is a 33-year-old female who presents emergency department with chief complaint of abdominal pain. 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 Related Data Home Medications Medication Instructions Recorded Confirmed Suboxone 2 mg BYMOUTH Q12H 11/12/21 10/24/23 bupropion HCl 300 mg 24 hr tablet, 300 mg PO DAILY 09/25/22 10/24/23 extended release hydroxyzine pamoate 25 mg capsule 25 mg PO TID PRN Nausea And 09/25/22 10/24/23 Vomiting lamotrigine 25 mg tablet 50 mg PO DAILY 09/25/22 10/24/23 acetaminophen 500 mg tablet 1,000 mg PO DAILY PRN meagan 10/24/23 10/24/23 Allergies Allergy/AdvReac Type Severity Reaction Status Date / Time Penicillins AdvReac Hives Verified 10/19/23 14:46 Review of Systems Review of Systems: A 10 system review of systems was completed on the patient and is negative except for what is stated in the HPI. Nursing and ancillary documentation was reviewed. [facility] Past Medical History Medical History Bipolar disorder Contusion of forearm, left Methamphetamine use Opiate dependence Surgical History Surgical History Hx LEEP (loop electrosurgical excision procedure), cervix, Family History Family History Father Diabetes mellitus Heart disease Cerebrovascular accident Other Cancer Hypertension Kidney disease Social History Social History Smoking status: Current every day smoker Tobacco type: cigarettes Second hand tobacco smoke exposure: Yes Additional smoking assessment comments: 3 cigarettes per day Alcohol intake: never Substance use: never Substance use type: former substance user Do You Feel Safe in your Home?: Yes Lack of Transportation: No Lack of Food: Never True Current Housing: I Have Housing Concerned About Future Housing: No Difficulty Paying Gas/Electric Bills: No Difficulty Paying for Meds: No Currently Unemployed: No Education: High School Diploma/GED Difficulty w/ Childcare or Family Care: No Occupation/Education: occupation 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 HEAD: Normocephalic, atraumatic. EYES: PERRLA and EOMI. ENT: Nares clear, no rhinorrhea or epistaxis. Mucous membranes moist. NECK: Supple. CHEST: Clear to auscultation. No respiratory distress. HEART: Regular rate and rhythm. No murmur heard. Normal peripheral pulses. ABDOMEN: Soft, tenderness to palpation in right upper quadrant, nondistended, normal active bowel sounds. EXTREMITIES: Normal range of motion. No edema. SKIN: Warm, dry, no rash. NEURO: No focal deficits. Alert and oriented x3. PSYCH: Normal mood and affect. Course Vital Signs Vital signs: Vital Signs Temperature 36.7 C 10/25/23 02:42 Pulse Rate 115 H 10/25/23 02:42 Respiratory Rate 16 10/25/23 02:42 Blood Pressure 136/77 10/25/23 02:42 Pulse Oximetry 100 10/25/23 02:42 Oxygen Delivery Room Air 10/25/23 02:42 Temperature 36.7 C 10/25/23 02:42 Pulse Rate 115 H 10/25/23 02:42 Respiratory Rate 16 10/25/23 02:42 Blood Pressure 136/7
[2023-10-25] MEDS: SODIUM CHLORIDE 0.9% IV 1,000 ML 999 ML IV CONT (03:06)
[2023-10-25 03:08] LABS: Basophils Absolute Auto 0.1 K/mm3 (0.0-0.1); Basophils Percent Auto 0.7 % (0.2-1.2); Eosinophils Absolute Auto 0.4 K/mm3 (0-0.3); Eosinophils Percent Auto 4.3 % (0-4.4); Hematocrit 33.6 % (37.0-47.0); Hemoglobin 11.5 g/dL (12.0-15.0); Immature Granulocyte Absolute 0.03 K/mm3 (0.00-0.031); Immature Granulocyte Percent A 0.4 % (0-0.5); Lymphocytes Absolute Auto 2.82 K/mm3 (0.9-3.2); Lymphocytes Percent Auto 34.6 % (18.3-44.2); Mean Corpuscular HGB Conc 34.2 g/dl (32-36); Mean Corpuscular Hemoglobin 28.9 pg (26-34); Mean Corpuscular Volume 84.4 fl (80-100); Mean Platelet Volume 8.8 fl (7.4-10.4); Monocytes Absolute Auto 0.7 K/mm3 (0.1-0.6); Monocytes Percent Auto 8.7 % (2.6-8.5); Neutrophils Absolute Auto 4.2 K/mm3 (1.3-6.7); Neutrophils Percent Auto 51.3 % (45.5-73.1); Platelet Count Result 422 k/mm3 (150-375); Red Blood Count 3.98 M/mm3 (4.2-5.4); Red Cell Distribution Width 12.9 % (11.5-14.5); White Blood Count 8.2 K/mm3 (4.5-10.0)
[2023-10-25 03:23] LABS: Alanine Aminotransferase 19 U/L (6-35); Alkaline Phosphatase 60 U/L (38-126); Anion Gap 4 mmol/L (4-12); Aspartate Amino Transferase 24 U/L (14-36); Bilirubin,Total 0.3 mg/dL (0.2-1.3); Blood Urea Nitrogen 10 mg/dL (7-17); Calcium 9.1 mg/dL (8.4-10.2); Carbon Dioxide 27 mmol/L (22-30); Chloride 106 mmol/L (98-107); Estimated CRCL calculation 96 ml/min; Estimated Glomerular Filt Rate > 60; Ethanol < 10 mg/dL (<10); Glucose 95 mg/dL (65-110); Lipase 42 U/L (23-300); Potassium 3.5 mmol/L (3.4-5.0); Sodium 137 mmol/L (137-145)
[2023-10-25 03:36] LABS: Barbiturate Screen Urine Negative (Negative); Benzodiazepines Screen Urine Negative (Negative)
[2023-10-25 03:38] LABS: Cannabinoid Screen Urine Negative (Negative); Cocaine Screen Urine Negative (Negative); Methadone Screen Urine Negative (Negative); Opiate Screen Urine Positive (Negative); Phencyclidine Screen Urine Negative (Negative)
[2023-10-25 03:54] LABS: Amphetamine Screen Urine Positive (Negative)
[2023-10-25] MEDS: SODIUM CHLORIDE 0.9% IV 1,000 ML 125 ML IV CONT ×3 (04:00→19:49)
--- NOTE | 2023-10-25 04:10 | PC.NURSE ---
Pt re-admitted to the floor after signing out AMA a few hours ago. Pt is A&O x4, able to make needs known. Medication reconciliation completed, admission packet reviewed. Pt with no further questions. Will continue to monitor.
--- NOTE | 2023-10-25 09:29 | PM.CNGS ---
Assessment and Plan Assessment and plan (1) Acute calculous cholecystitis: Code(s): K80.00 - Calculus of gallbladder with acute cholecystitis without obstruction Status: Acute Assessment and Plan: Patient presents with persistent right upper quadrant abdominal pain. Imaging and exam consistent with acute calculous cholecystitis. Common bile duct dilatation on ultrasound, but LFTs normal. Discussed with Dr. Olmos, who recommends proceeding with a laparoscopic cholecystectomy under general anesthesia, which was discussed in detail with her in the office. Discussed both nonoperative and surgical treatment options with the patient. The patient wishes to proceed with surgery. She has no additional questions regarding surgery. We will keep her NPO with IV fluids, and she has tentatively been added onto the surgery schedule today. Also discussed with Dr. Olmos concerns with recent methamphetamine use. (2) Bipolar disorder: Qualifiers: Active/Remission status: remission status unspecified Qualified Code(s): F31.9 - Bipolar disorder, unspecified Code(s): F31.9 - Bipolar disorder, unspecified Status: Acute (3) Methamphetamine use: Code(s): F15.10 - Other stimulant abuse, uncomplicated Status: Acute Assessment and Plan: Last use yesterday per patient. She did leave AMA last night and returned quickly after with urine toxicology positive for opiates and amphetamines. (4) Opiate dependence: Code(s): F11.20 - Opioid dependence, uncomplicated Status: Acute Assessment and Plan: Reportedly taking Suboxone. Plan I have discussed the patient's case and plan of care with Dr. Olmos. Thank you for allowing us to see the patient in consultation and we will continue to follow along with you. History of Present Illness Consult details Consult date: 10/25/23 Reason for consult: other (Cholelithiasis) Requesting physician: Ellis Santillan MD Narrative: This is a 33-year-old woman with a history of bipolar disorder and substance abuse, who was seen in our office by Dr. Olmos 1 week ago for right upper quadrant abdominal pain. She was evaluated at an [facility] ER on 10/17/[address] abdomen pelvis that showed acute cholecystitis. She was discharged on oral antibiotics and seen as an outpatient by Dr. Olmos on 10/18/2022. She was being scheduled for a laparoscopic cholecystectomy as an outpatient, but presented to the ER yesterday due to unbearable abdominal pain. She is reportedly on Suboxone for opioid dependence. Labs significant for normal white blood cell count, normal LFTs, normal lipase, potassium 3.3. UA negative for UTI. Right upper quadrant abdominal ultrasound showed cholelithiasis, gallbladder wall thickening, and positive Partida sign, but no gallbladder distension to suggest acute cholecystitis. Also seen is a mildly dilated common duct measuring 10 mm. She was admitted and apparently left AMA. She quickly returned within a few hours and wanted to be readmitted. Urine toxicology was positive for opiates and amphetamines. She was readmitted, made NPO, and started on IV fluids. Repeat labs remain unremarkable. Our service has been consulted for surgical evaluation and she is seen on the medical floor. No previous abdominal surgeries. She reports taking Suboxone, but also smoking methamphetamine. She reports her last use was yesterday. Review of Systems Review of Systems: All systems reviewed & are unremarkable except as noted in HPI and below PMFSH Past Medical History Medical History Bipolar disorder Contusion of forearm, left Methamphetamine use Opiate dependence Surgical History Surgical History Hx LEEP (loop electrosurgical excision procedure), cervix, Family History Family History (Reviewed 10/25/23 @ 09:3
--- NOTE | 2023-10-25 09:43 | PM.IMHP ---
H&P: HPI History of Present Illness Date/Time: 10/25/23 09:43 Chief Complaint: Abdominal pain Narrative: This is a 33-year-old female with significant past medical history of bipolar disorder, amphetamine abuse, opioid abuse who presented to the hospital with abdominal pain. She was seen in the emergency room yesterday and was diagnosed with acute cholecystitis was admitted to the hospital however she left AMA. Approximately 1 later she return to the ER. Workup in the hospital included abdomen ultrasound which showed cholelithiasis, gallbladder wall thickening, and positive sonographic Partida sign, mildly dilated common bile duct. Initial labs revealed a potassium of 3.3, normal. A UA was obtained which showed urine protein was. Urine drug screen positive for opiates and amphetamine. She was given 1 L of normal saline in the ED and general surgery was consulted for further evaluation and treatment. On examination today patient is alert oriented x3, lying in the bed. She denies any fever, chills, nausea, vomiting, diarrhea, chest pain, shortness a breath. She endorses mild abdominal pain epigastric which radiates to her mid back. Plan is for patient to have lap cholecystectomy today with General surgery team. Review of Systems Review of Systems: All systems reviewed & are unremarkable except as noted in HPI and below Constitutional: Constitutional: Reports as per HPI and Reports no additional constitutional complaints Eyes: Eyes: Reports as per HPI and Reports no additional eye complaints ENT: Reports system reviewed and no additional complaints, except as documented and Reports as per HPI Cardiovascular: Cardiovascular: Reports as per HPI and Reports no additional cardiovascular complaints Respiratory: Respiratory: Reports as per HPI and Reports no additional respiratory complaints Gastrointestinal: Gastrointestinal: Reports as per HPI and Reports no additional gastrointestinal complaints Genitourinary: Genitourinary: Reports no additional female genitourinary complaints and Reports as per HPI Musculoskeletal: Musculoskeletal: Reports no additional musculoskeletal complaints and Reports as per HPI Integumentary/Breasts: Skin/Breast: Reports system reviewed and no additional complaints, except as docu and Reports as per HPI Neurologic: Reports system reviewed and no additional complaints, except as documented and Reports as per HPI Psychiatric: Psychiatric: Reports no additional psychiatric complaints and Reports as per HPI [facility] Past Medical History Medical History Bipolar disorder Contusion of forearm, left Methamphetamine use Opiate dependence Surgical History Surgical History Hx LEEP (loop electrosurgical excision procedure), cervix, Family History Family History Father Diabetes mellitus Heart disease Cerebrovascular accident Other Cancer Hypertension Kidney disease Social History Social History Smoking status: Current every day smoker Second hand tobacco smoke exposure: Yes Additional smoking assessment comments: 3 cigarettes per day Alcohol intake: never Substance use: never Substance use type: former substance user Do You Feel Safe in your Home?: Yes Lack of Transportation: No Lack of Food: Never True Current Housing: I Have Housing Concerned About Future Housing: No Difficulty Paying Gas/Electric Bills: No Difficulty Paying for Meds: No Currently Unemployed: No Education: High School Diploma/GED Difficulty w/ Childcare or Family Care: No Occupation/Education: occupation 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
[2023-10-25] MEDS: lamoTRIgine 50 MG TABLET PO (10:31)
--- NOTE | 2023-10-25 12:01 | WPDHPUPDATE1 ---
History and Physical Update Update Date/Time: 10/25/23 12:01 History and Physical has been reviewed, including an updated exam of the patient. There are NO changes in the patient's condition. Risks, benefits, and alternatives have been discussed and questions answered. Patient agrees to proceed with procedure.
[2023-10-25] MEDS: ACETAMINOPHEN 500 MG TABLET 1000 MG PO ×2 (12:16→19:49)
[2023-10-25] MEDS: KETOROLAC 15 MG/ML VIAL (*BKC) IV PUSH (12:18)
--- NOTE | 2023-10-25 13:05 | WPDANESEPPF ---
Anes - Initial Pre Proc Eval Procedure: Operation Date: 10/25/23 13:00 Proposed Procedures p Laparoscopic Cholecystectomy - Shahnaz Olmos MD Date/Time: 10/25/23 13:05 Surgeon: Jolynn Smith MD Pre Op Diagnosis: Choelithiasis Patient Data Age: 33 Gender: F Height: 1.63 m Weight: 56.8 kg Last Vital Signs Temp 98.7 F 10/25/23 12:02 Pulse 65 10/25/23 12:02 Resp 16 10/25/23 12:02 BP 96/53 L 10/25/23 12:02 Pulse Ox 100 10/25/23 12:02 O2 Del Method Room Air 10/25/23 12:02 Allergies Allergy/AdvReac Type Severity Reaction Status Date / Time Penicillins AdvReac Hives Verified 10/19/23 14:46 Home Medications Medication Instructions Recorded Confirmed Type Suboxone 2 mg BYMOUTH Q12H 11/12/21 10/25/23 History bupropion HCl 300 mg 24 hr tablet, 300 mg PO DAILY 09/25/22 10/25/23 History extended release hydroxyzine pamoate 25 mg capsule 25 mg PO TID PRN Nausea And 09/25/22 10/25/23 History Vomiting lamotrigine 25 mg tablet 50 mg PO DAILY 09/25/22 10/25/23 History ciprofloxacin HCl 500 mg tablet 500 mg PO Q12H #20 tabs 10/18/23 10/25/23 Rx (Cipro) ibuprofen 800 mg tablet 800 mg PO TID PRN pain 7 days #21 10/18/23 10/25/23 Rx tabs ondansetron 4 mg disintegrating 4 mg PO Q8H PRN nausea and 10/18/23 10/25/23 Rx tablet vomiting #30 tabs acetaminophen 500 mg tablet 1,000 mg PO DAILY PRN meagan 10/24/23 10/25/23 History Laboratory Tests 10/25/23 10/25/23 03:02 03:12 WBC 8.2 K/mm3 (4.5-10.0) RBC 3.98 L M/mm3 (4.2-5.4) Hgb 11.5 L g/dL (12.0-15.0) Hct 33.6 L % (37.0-47.0) MCV 84.4 fl (80-100) MCH 28.9 pg (26-34) MCHC 34.2 g/dl (32-36) RDW 12.9 % (11.5-14.5) Plt Count 422 H k/mm3 (150-375) MPV 8.8 fl (7.4-10.4) Immature Gran % (Auto) 0.4 % (0-0.5) Neut % (Auto) 51.3 % (45.5-73.1) Lymph % (Auto) 34.6 % (18.3-44.2) [place] % (Auto) 8.7 H % (2.6-8.5) Eos % (Auto) 4.3 % (0-4.4) Baso % (Auto) 0.7 % (0.2-1.2) Lymph # (Auto) 2.82 K/mm3 (0.9-3.2) [place] # (Auto) 0.7 H K/mm3 (0.1-0.6) Eos # (Auto) 0.4 H K/mm3 (0-0.3) Baso # (Auto) 0.1 K/mm3 (0.0-0.1) Abs Immat Gran (auto) 0.03 K/mm3 (0.00-0.031) Absolute Neuts (auto) 4.2 K/mm3 (1.3-6.7) Absolute Nucleated RBC 0.000 K/mm3 (0.0-0.012) Nucleated RBC % 0.0 % (0.0-0.2) Sodium 137 mmol/L (137-145) Potassium 3.5 mmol/L (3.4-5.0) Chloride 106 mmol/L (98-107) Carbon Dioxide 27 mmol/L (22-30) Anion Gap 4 mmol/L (4-12) BUN 10 mg/dL (7-17) Creatinine 0.60 L mg/dL (0.7-1.0) Estim Creat Clear Calc 96 ml/min Estimated GFR > 60 (59 - ) Glucose 95 mg/dL (65-110) Calcium 9.1 mg/dL (8.4-10.2) Total Bilirubin 0.3 mg/dL (0.2-1.3) AST 24 U/L (14-36) ALT 19 U/L (6-35) Alkaline Phosphatase 60 U/L (38-126) Total Protein 7.0 g/dL (6.3-8.2) Albumin 4.0 g/dL (3.5-5.1) Lipase 42 U/L (23-300) Urine Opiates Screen Positive A (Negative) Urine Methadone Screen Negative (Negative) Ur Barbiturates Screen Negative (Negative) Ur Phencyclidine Scrn Negative (Negative) Ur Amphetamine Screen Positive A (Negative) U Benzodiazepines Scrn Negative (Negative) Urine Cocaine Screen Negative (Negative) U Cannabinoids Screen Negative (Negative) Ethyl Alcohol < 10 mg/dL (<10) Patient hx anesthesia problems: none Family hx anesthesia problems: none Results Review: All pre-operative results and documents have been reviewed as part of the pre-operative evaluation. [facility] Past Medical History Medical History Bipolar disorder Contusion of forearm, left Meth
[2023-10-25] MEDS: ceFAZolin 2 GM/D5W 50 ML 2 GM/50 ML BAG IVPB (13:28)
[2023-10-25] MEDS: BUPIVACAINE/EPINEPHRINE 0.5% 30 ML VIAL INFILTRATE (14:02)
[2023-10-25] MEDS: LACTATED RINGERS 1,000 ML 30 ML IV CONT ×2 (14:30)
--- NOTE | 2023-10-25 14:34 | P.OP_ITS ---
Procedure Note - Detailed Date of Procedure 10/25/23 Pre-op Diagnosis Acute cholecystitis, cholelithiasis Post-op Diagnosis Same Procedure Performed Laparoscopic cholecystectomy Surgeon Shahnaz Olmos MD Anesthesia General Indications 33-year-old female presenting to the emergency department with acute cho lecystitis, cholelithiasis. Findings Cholecystitis with cholelithiasis Description of Procedure The patient was taken to the operating room placed in the supine position. After adequate induction of general anesthesia, the patient was prepped and draped in normal sterile fashion. A time-out was then performed to verify the patient's identity as well as the procedure being performed. I then made a 5 mm incision in the infraumbilical region. Through this, a Veress needle was placed into the peritoneal cavity and CO2 gas was then insufflated. After adequate pneumoperitoneum was achieved, the Veress needle was removed and a 5 mm optiview trocar was placed through this incision under direct visualization. I then placed the laparoscope through this trocar site and under direct visualization placed a further 12 mm subxiphoid port as well as 2 additional 5 mm ports in the right upper abdomen. The gallbladder was then identified and was noted to be inflamed, distended, and full of gallstones. I was able to place a grasper at the dome of the gallbladder and this was retracted anterior and cephalad up over the liver. A 2nd retractor was then placed at the infundibulum and retracted laterally, this allowed visualization of the triangle of Calot. I then was able to visualize the cystic duct in its entirety from its proximal insertion into the gallbladder, to its distal junction with the common hepatic/common bile duct junction. At this point, I carefully skeletonized the proximal cystic duct with the [place] dissector. I then clipped and transected the proximal cystic duct. Next I visualized the cystic artery. Again the artery was skeletonized, clipped, and transected. I then used the Bovie cautery to take down the peritoneal attachments of the gallbladder off the liver bed. This was somewhat difficult given the amount of inflammation in the posterior space. Once the gallbladder specimen was completely detached, an endo-pouch was placed through the 12 mm port site. I then placed the gallbladder specimen into the Endo pouch and removed the endo-pouch from the 12 mm port site. The specimen will now be sent to pathology for further review. I then copiously irrigated the right upper quadrant. Some mild oozing was noted in the liver bed and this was controlled with the bovie cautery. Hemostasis was noted in the liver bed, the clips were noted to be in good position on both the cystic duct stump and the cystic artery stump. No other pathology was noted in the right upper quadrant. I then moved the laparoscope to the subxiphoid port. No iatrogenic injury or other pathology was noted in the lower abdomen. I then closed the 12 mm trocar site under direct visualization using the Abdulaziz cone and 0 Vicryl suture. At this point, the abdomen was desufflated and all ports removed. All port sites were then closed with 4.O Monocryl subcuticular sutures. Dermabond was placed on each incision. The patient tolerated the procedure well, was extubated in the operating room postoperative and will be transferred to the recovery room in stable condition Estimated Blood Loss 10 Drains No Packing No Pathology Yes Complications No immediate complications Condition Stable Disposition PACU [facility] Billing Surgery - Charge Forward: Surgery Billing
[2023-10-25] MEDS: ONDANSETRON INJ 4 MG/2 ML VIAL IV PUSH (15:07)
[2023-10-25] MEDS: fentaNYL CITRATE INJ (*CRX) 100 MCG/2 ML VIAL 25 MCG IV PUSH ×8 (15:23→16:05)
[2023-10-25] MEDS: IBUPROFEN 400 MG TABLET 800 MG PO ×2 (16:26→22:32)
[2023-10-25] MEDS: buPROPion HCL XL (24 HR) 150 MG TABCR 300 MG PO (16:26)
[2023-10-25] MEDS: traMADol HCL (*CRX) 50 MG TABLET PO (16:53)
[2023-10-25] MEDS: KETOROLAC 30 MG/ML VIAL (*BKC) IV PUSH (17:31)
--- NOTE | 2023-10-25 17:40 | PC.NURSE ---
Patient still c/o pain after motrin and tramadol given. Dr Olmos and Dr Meyer notified, new jame recieved.
[2023-10-26] MEDS: SODIUM CHLORIDE 0.9% IV 1,000 ML 125 ML IV CONT (05:30)
[2023-10-26 05:45] VITALS: BP 108/57; PULSE 77; RESP 18; TEMP 36.6; O2SAT 97
[2023-10-26 08:29] VITALS: PULSE 79; O2SAT 97
--- NOTE | 2023-10-26 08:54 | WPDANESPN ---
Anes - Prog Note Post-Op Date/Time: 10/26/23 08:54 Cardiovascular status: normal Respiratory status: normal Airway patency: baseline Mental status: baseline Post-Op hydration status: normal Vital Signs: Last Vital Signs Temp 36.6 C 10/26/23 05:45 Pulse 79 10/26/23 08:29 Resp 18 10/26/23 05:45 BP 108/57 L 10/26/23 05:45 Pulse Ox 97 10/26/23 08:29 O2 Del Method Room Air 10/26/23 08:29 O2 Flow Rate 10 10/25/23 14:45 Pain Score (VAS): 410 I/O: Intake & Output 10/25/23 10/26/23 10/26/23 23:59 07:59 15:59 Intake Total 529.2 1270 Balance 529.2 1270 Laboratory Tests 10/25/23 03:02 10/25/23 03:02 Post-procedural complaints: nausea Patient Feedback: Patient satisfied with anesthetic care.
[2023-10-26] MEDS: buPROPion HCL XL (24 HR) 150 MG TABCR 300 MG PO (09:58)
[2023-10-26] MEDS: lamoTRIgine 50 MG TABLET PO (10:03)
[2023-10-26] MEDS: ACETAMINOPHEN 500 MG TABLET 1000 MG PO (10:03)
[2023-10-26 11:37] LABS: Basophils Absolute Auto 0.1 K/mm3 (0.0-0.1); Basophils Percent Auto 0.4 % (0.2-1.2); Eosinophils Absolute Auto 0.1 K/mm3 (0-0.3); Eosinophils Percent Auto 0.5 % (0-4.4); Hematocrit 33.2 % (37.0-47.0); Hemoglobin 10.8 g/dL (12.0-15.0); Immature Granulocyte Absolute 0.07 K/mm3 (0.00-0.031); Immature Granulocyte Percent A 0.6 % (0-0.5); Lymphocytes Absolute Auto 3.28 K/mm3 (0.9-3.2); Lymphocytes Percent Auto 27.3 % (18.3-44.2); Mean Corpuscular HGB Conc 32.5 g/dl (32-36); Mean Corpuscular Hemoglobin 28.1 pg (26-34); Mean Corpuscular Volume 86.5 fl (80-100); Mean Platelet Volume 8.9 fl (7.4-10.4); Monocytes Absolute Auto 0.8 K/mm3 (0.1-0.6); Monocytes Percent Auto 6.7 % (2.6-8.5); Neutrophils Absolute Auto 7.8 K/mm3 (1.3-6.7); Neutrophils Percent Auto 64.5 % (45.5-73.1); Platelet Count Result 437 k/mm3 (150-375); Red Blood Count 3.84 M/mm3 (4.2-5.4)
[2023-10-26 11:53] LABS: Alanine Aminotransferase 21 U/L (6-35); Albumin Level 3.1 g/dL (3.5-5.1); Alkaline Phosphatase 49 U/L (38-126); Anion Gap 3 mmol/L (4-12); Aspartate Amino Transferase 31 U/L (14-36); Bilirubin,Total 0.3 mg/dL (0.2-1.3); Blood Urea Nitrogen 11 mg/dL (7-17); Calcium 8.2 mg/dL (8.4-10.2); Carbon Dioxide 24 mmol/L (22-30); Chloride 108 mmol/L (98-107); Estimated CRCL calculation 113 ml/min; Estimated Glomerular Filt Rate > 60; Glucose 138 mg/dL (65-110); Potassium 3.2 mmol/L (3.4-5.0); Sodium 135 mmol/L (137-145)
--- NOTE | 2023-10-26 12:56 | PM.DS ---
DS: Admitting Diagnosis Discharge Date 10/26/23 Admitting Diagnosis Acute calculous cholecystitis Poly substance abuse Bipolar disorder DS: Discharge Diagnosis Discharge Diagnosis (1) Acute calculous cholecystitis: Code(s): K80.00 - Calculus of gallbladder with acute cholecystitis without obstruction Status: Acute (2) Polysubstance abuse: Code(s): F19.10 - Other psychoactive substance abuse, uncomplicated Status: Acute (3) Bipolar disorder: Qualifiers: Active/Remission status: remission status unspecified Qualified Code(s): F31.9 - Bipolar disorder, unspecified Code(s): F31.9 - Bipolar disorder, unspecified Status: Acute DS: Summary Hospital Course Reason for hospitalization: Acute calculous cholecystitis Poly substance abuse Bipolar disorder Hospital Course: Narrative: 10/25/23: This is a 33-year-old female with significant past medical history of bipolar disorder, amphetamine abuse, opioid abuse who presented to the hospital with abdominal pain.? She was seen in the emergency room yesterday and was diagnosed with acute cholecystitis was admitted to the hospital however she left AMA.? Approximately 1 later she return to the ER.? Workup in the hospital included abdomen ultrasound which showed cholelithiasis, gallbladder wall thickening, and positive sonographic Partida sign, mildly dilated common bile duct.? Initial labs revealed a potassium of 3.3, normal.? A UA was obtained which showed urine protein was.? Urine drug screen positive for opiates and amphetamine.? She was given 1 L of normal saline in the ED and general surgery was consulted for further evaluation and treatment.? On examination today patient is alert oriented x3, lying in the bed.? She denies any fever, chills, nausea, vomiting, diarrhea, chest pain, shortness a breath.? She endorses mild abdominal pain epigastric which radiates to her mid back.? Plan is for patient to have lap cholecystectomy today with General surgery team.? 10/26/23: Patient denies any new complaints today. Labs today show a white blood cell count of 12.0, hemoglobin 10.8, sodium 135, potassium 3.2. She is postop day 1 from laparoscopic cholecystectomy. She states that her pain is well controlled today. She is stable for discharge today. She will need to follow up with General surgery in 2 weeks. Final diagnosis: Acute cholecystitis, laparoscopic cholecystectomy Status at Discharge Cognitive/behavioral status at discharge: Alert oriented x4 Functional status at discharge: independent ambulation Overall status at discharge: patient is progressing back to baseline Time Spent with Patient Time attestation: Total time spent providing and/or coordinating discharge services: Time spent: Greater than 30 minutes Exam Narrative: General: In no acute distress, well nourished Head: atraumatic, no encephalopathy Eyes: EOMI, PERRLA, sclera clear ENT: moist mucous membranes, nasal passages clear, missing teeth Neck: supple, no JVD, no adenopathy, trachea midline Cardiac: Normal S1 and S2. RRR, No murmur, gallops or friction rubs, peripheral pulses intact. Respiratory: Lungs clear to auscultation, no adventitious lung sounds, room air Gastrointestinal: soft, non-distended, non-tender, hypoactive bowel sounds. : voiding without difficulty. Extremities: moves all extremities well, no edema, good ROM, strength 5/5 Skin: lap sites with surgical glue Neuro: Alert and oriented x4, cranial nerves intact, no neuro deficits. Psych: normal mood, normal affect, interactive DS: Data Data Completed and Pending Completed studies during hospitalization: Abdomen ultrasound Pending studies at discharge: Pending at discharge 10/25/23 13:55 Surgical [PTH] Routine Labs on day of discharge: Labs from last 24 hours 10/26/23 11:18 WBC 12.0 H RBC 3.84 L Hgb 10.8 L Hct 33.2 L MCV 86.5 MCH 28.1 MCHC 32.5 RDW 13.0 Plt Count 437 H
--- NOTE | 2023-10-26 13:10 | PM.PNGS ---
Progress Note: A&P Assessment and Plan (1) Acute calculous cholecystitis: Code(s): K80.00 - Calculus of gallbladder with acute cholecystitis without obstruction Status: Acute Assessment and Plan: doing well, home c Tramadol, await path, routine postop care and f/u 2 wks Subjective Subjective Date/Time Seen: 10/26/23 13:10 Interval history: doing well, some mild incisional pain, joon diet Review of Systems Review of Systems: All systems reviewed & are unremarkable except as noted in HPI and below Exam Const: General: cooperative, comfortable and no acute distress Resp: Auscultation: clear to auscultation bilaterally Cardio: Rate: regular rate Rhythm: regular rhythm GI: Inspection: normal to inspection and incision GI Palp: Yes abdominal tenderness and Yes Soft to palpation Objective Data Vital Signs Vital Signs: Vital Signs - 24 hr 10/25/23 14:30 10/25/23 14:45 10/25/23 15:00 Temperature 36.4 C L Pulse Rate 73 64 63 Respiratory Rate 16 17 14 Blood Pressure 108/61 116/72 117/75 Pulse Oximetry 96 99 100 Oxygen Delivery Simple Face Mask Simple Face Mask Room Air Oxygen Flow Rate 10 10 10/25/23 15:15 10/25/23 15:30 10/25/23 15:45 Temperature Pulse Rate 61 69 64 Respiratory Rate 15 23 H 20 Blood Pressure 115/76 119/75 119/75 Pulse Oximetry 100 100 100 Oxygen Delivery Room Air Room Air Room Air Oxygen Flow Rate 10/25/23 16:00 10/25/23 16:20 10/25/23 16:35 Temperature 36.5 C 36.5 C Pulse Rate 59 L 64 52 L Respiratory Rate 17 18 18 Blood Pressure 115/77 114/62 117/71 Pulse Oximetry 100 99 100 Oxygen Delivery Room Air Oxygen Flow Rate 10/25/23 17:12 10/25/23 20:00 10/25/23 21:33 Temperature 36.6 C 37.0 C Pulse Rate 56 L 62 67 Respiratory Rate 16 18 17 Blood Pressure 110/64 120/66 Pulse Oximetry 100 99 98 Oxygen Delivery Room Air Oxygen Flow Rate 10/26/23 05:45 10/26/23 08:29 10/26/23 08:30 Temperature 36.6 C Pulse Rate 77 79 Respiratory Rate 18 Blood Pressure 108/57 L Pulse Oximetry 97 97 Oxygen Delivery Room Air Room Air Oxygen Flow Rate Intake/Output Intake/Output: Intake & Output 10/23/23 10/24/23 10/25/23 10/26/23 23:59 23:59 23:59 23:59 Intake Total 2279.2 1390 Balance 2279.2 1390 Meds/Results Medications: Active Medications Generic Name Dose Route Start Last Admin Trade Name Freq PRN Reason Stop Dose Admin Acetaminophen 1,000 mg 10/25/23 16:08 10/26/23 10:03 Acetaminophen 500 Mg Tablet PO 1,000 mg DAILY PRN Administration pain 1-3 Buprenorphine/Naloxone 1 each 10/25/23 21:00 10/26/23 09:58 Buprenorphine/Naloxone (*Crx) 2 Mg/0.5 Mg Sl Film SUBLINGUAL 1 each Q12HR ELOISA Administration Bupropion HCl 300 mg 10/25/23 09:00 10/26/23 09:58 Bupropion Hcl Xl (24 Hr) 150 Mg Tabcr PO 300 mg DAILY ELOISA Administration Hydroxyzine Pamoate 25 mg 10/25/23 09:52 Hydroxyzine Pamoate 25 Mg Capsule PO TID PRN Nausea And Vomiting Ibuprofen 800 mg 10/25/23 16:12 10/25/23 22:32 Ibuprofen 400 Mg Tablet PO 800 mg TID PRN Administration pain 1-3 Lamotrigine 50 mg 10/25/23 09:00 10/26/23 10:03 Lamotrigine 50 Mg Tablet PO 50 mg DAILY ELOISA Administration Ondansetron HCl 4 mg 10/25/23 02:59 Ondansetron Inj 4 Mg/2 Ml Vial IV PUSH Q4H PRN Nausea Ondansetron HCl 4 mg 10/25/23 16:08 Ondansetron Hcl Odt 4 Mg Tablet PO Q8H PRN nausea and vomiting Tramadol HCl 50 mg 10/25/23 16:08 10/25/23 16:53 Tramadol Hcl (*Crx) 50 Mg Tablet PO 50 mg Q4H PRN Administration Pain Rated 4-6 Labs Labs: Laboratory Results - last 24 hr 10/26/23 11:18 WBC 12.0 H RBC 3.84 L Hgb 10.8 L Hct 33.2 L MCV 86.5 MCH 28.1 MCHC 32.5 RDW 13.0 Plt Count 437 H MPV 8.9 Immature Gran % (Auto) 0.6 H Neut % (Auto) 64.5 Lymph % (Auto) 27.3 [place] % (Auto) 6.7 Eos % (Auto) 0.5 Baso % (Auto) 0.4 L
[2023-10-26 14:23] VITALS: BP 103/55; PULSE 83; RESP 14; TEMP 36.4; O2SAT 99
[2023-10-26] MEDS: POTASSIUM CHLORIDE 20 MEQ ER TABLET 40 MEQ PO (14:38)
== END 2023-10-26 15:30 | disposition home or self-care (01) ==
LOC: ANHED 03:14 → ANH3MED 08:54 → ANH2MED 10-26 10:50 → ANH3MED 10-27 07:41
PROVIDERS: Nurse Practitioner Acute Care; Surgery; Admitting Provider Internal Medicine; Emergency Provider Emergency Medicine; PCP Family Medicine; Visit Provider Internal Medicine
PROC: 0FT44ZZ Resection of Gallbladder, Percutaneous Endoscopic Approach (ICD-10-PCS; CPT 47562; principal; 2023-10-25 13:00)
DX: K80.10 Calculus of gallbladder with chronic cholecystitis without obstruction (principal); F31.9 Bipolar disorder, unspecified; F11.20 Opioid dependence, uncomplicated; F15.10 Other stimulant abuse, uncomplicated; F17.210 Nicotine dependence, cigarettes, uncomplicated; Z79.1 Long term (current) use of non-steroidal anti-inflammatories (NSAID); Z79.899 Other long term (current) drug therapy
CPT/HCPCS: 47562; 36415; 80053; 80307; 81025; 83690; 85025; 88304; 96365; 96375; 99285; A9270; G0378; G0379; J0572; J0690; J1100; J1885; J2250; J2405; J2704; J3010; J7030; J7120

== ENCOUNTER 2023-12-05 23:16 | Emergency (ER) | payer OTHER, SELFPAY ==
--- NOTE | 2023-12-05 23:21 | ED.FEMALEGU ---
HPI - Female Genitourinary General Chief complaint: Urogenital-Female Stated complaint: UTI Symptoms Time Seen by Provider: 12/05/23 23:18 Source: patient Mode of arrival: ambulatory Limitations: no limitations History of Present Illness HPI Narrative: Patient is a 33-year-old female with burning on urination for 3 days. She also has some yellow-green discharge from the vaginal area for the past 3 days as well. No definite interaction with STDs. She did not want other testing for STD at this time except the gonorrhea and chlamydia that we are going to do off the urine. MD elicited complaint: dysuria Pertinent past history: other ( Patient claims methamphetamine use daily) Onset (ago): day(s) (3) Location of symptoms: urethra and vaginal Severity: moderate Female Urogenital Radiation: Non-Radiating Severity scale (1-10): 4 Quality of pain: sharp Consistency: constant Vaginal discharge: yellow and purulent Vaginal bleeding: none Urinary symptoms: Dysuria, Urgency and Frequency Exacerbating factors: urination Relieving factors: none Associated symptoms: denies other symptoms Treatment prior to arrival: none Sexual activity: Yes Patient : No Possible : unsure if Related Data Home Medications Medication Instructions Recorded Confirmed Suboxone 2 mg BYMOUTH Q12H 11/12/21 10/25/23 bupropion HCl 300 mg 24 hr tablet, 300 mg PO DAILY 09/25/22 10/25/23 extended release hydroxyzine pamoate 25 mg capsule 25 mg PO TID PRN Nausea And 09/25/22 10/25/23 Vomiting lamotrigine 25 mg tablet 50 mg PO DAILY 09/25/22 10/25/23 acetaminophen 500 mg tablet 1,000 mg PO DAILY PRN meagan 10/24/23 10/25/23 Allergies Allergy/AdvReac Type Severity Reaction Status Date / Time Penicillins AdvReac Hives Verified 10/19/23 14:46 Review of Systems Review of Systems: All systems reviewed & are unremarkable except as noted in HPI and below Constitutional: Constitutional: Reports no additional constitutional complaints Eyes: Eyes: Reports no additional eye complaints ENT: Reports system reviewed and no additional complaints, except as documented Cardiovascular: Cardiovascular: Reports no additional cardiovascular complaints Respiratory: Respiratory: Reports no additional respiratory complaints Gastrointestinal: Gastrointestinal: Reports no additional gastrointestinal complaints Genitourinary: Genitourinary: Reports no additional female genitourinary complaints Musculoskeletal: Musculoskeletal: Reports no additional musculoskeletal complaints Integumentary/Breasts: Skin/Breast: Reports system reviewed and no additional complaints, except as docu Neurologic: Reports system reviewed and no additional complaints, except as documented Psychiatric: Psychiatric: Reports no additional psychiatric complaints Endocrine: Endocrine: Reports no additional endocrine complaints Hematologic/Lymphatic: Hematologic/Lymphatic: Reports no additional hematologic/lymphatic complaints Allergic/Immunologic: Allergic/Immunologic: Reports no additional allergic/immunologic complaints PMFSH Past Medical History Medical History Bipolar disorder Contusion of forearm, left Methamphetamine use Opiate dependence Surgical History Surgical History Hx LEEP (loop electrosurgical excision procedure), cervix, Family History Family History Father Diabetes mellitus Heart disease Cerebrovascular accident Other Cancer Hypertension Kidney disease Social History Social History Smoking status: Current every day smoker Second hand tobacco smoke exposure: Yes Additional smoking assessment comments: 3 cigarettes per day Alcohol intake: never Substance use: never Substance use type: former subst
[2023-12-05 23:32] LABS: Appearance Urine Clear (Clear); Bilirubin Urine Negative (Negative); Blood Urine 1+ (Negative); Color Urine Light Yellow (Yellow); Glucose Urine UA Negative (Negative); Ketones Urine Negative (Negative); Leukocyte Esterase Ur Trace LEU/UL (Negative); Nitrate Urine Negative (Negative); Protein Urine Negative (Negative); Specific Grav Ur >= 1.030 (1.010-1.020); Urobilinogen Urine 0.2 mg/dL (0.2-1.0)
[2023-12-05 23:34] VITALS: BP 112/74; PULSE 80; RESP 18; TEMP 36.6; O2SAT 97
[2023-12-05 23:39] LABS: Pregnancy On Board Control Positive; Urine Pregnancy Test Negative
[2023-12-05 23:43] LABS: Add Urine Microscopic? YES; Squamous Epithelial Cell Urine Few /hpf (Few)
[2023-12-05 23:44] LABS: Mucus Urine Heavy /lpf
[2023-12-05] MEDS: AZITHROMYCIN 250 MG TABLET 2000 MG PO (23:49)
[2023-12-06] MEDS: GENTAMICIN SULFATE INJ 80 MG/2 ML VIAL 240 MG IM (00:23)
[2023-12-06 00:35] VITALS: BP 110/71; PULSE 85; RESP 18; TEMP 36.6; O2SAT 98
[2023-12-06 07:44] LABS: Trichomonas Vag PCR NOT DETECTED (NOT DETECTE)
[2023-12-06 08:10] LABS: Chlamydia trachomatis NOT DETECTED (NOT DETECTE); Neisseria gonorrhoeae PCR NOT DETECTED (NOT DETECTE)
== END 2023-12-06 00:35 | disposition home or self-care (01) ==
PROVIDERS: Emergency Provider Emergency Medicine; PCP Family Medicine
DX: N34.2 Other urethritis (principal); N76.0 Acute vaginitis; F15.90 Other stimulant use, unspecified, uncomplicated; F11.20 Opioid dependence, uncomplicated; F17.210 Nicotine dependence, cigarettes, uncomplicated
CPT/HCPCS: 81001; 81025; 87491; 87591; 87661; 96372; 99284; A9270; J1580

== ENCOUNTER 2023-12-08 00:44 | Emergency (ER) | payer OTHER, SELFPAY ==
[2023-12-08 00:47] VITALS: BP 125/84; PULSE 90; RESP 18; TEMP 37; O2SAT 99
--- NOTE | 2023-12-08 00:47 | ED.FEMALEGU ---
HPI - Female Genitourinary General Chief complaint: Abdominal Pain Stated complaint: Abdominal Pain Time Seen by Provider: 12/08/23 00:46 Source: patient Mode of arrival: ambulatory Limitations: no limitations History of Present Illness HPI Narrative: patient is a 33-year-old female who has come to see me 2 days ago for a burning sensation when she urinated. She was having dysuria. She was also having a vaginal discharge. Based on her history it appeared that she had STD. There was no rash at the time. I treated her for gonorrhea and chlamydia on her last visit. I was waiting for final testing. Gonorrhea and chlamydia were negative. Trichomonas was negative. She did not want other STD testing at that time. Urinalysis was negative for acute UTI. She presents now with increasing amount of small red rash area of the labia. She appears to have more of an HSV type inflammation now that there is a rash. And in retrospect, she probably had the beginnings of the last visit. As an aside, the patient uses meth daily. Also, the patient presents with a right pointer finger wart and we discussed that she will discuss at her primary appointment this week. Patient has an appointment tomorrow with her primary doctor to get all STD testing done. She does not want to urinate today if she does not have to due to the burning at this time. We did a and a urinalysis in the past 2 days. They were both negative. MD elicited complaint: dysuria, UTI , vaginal discharge and possible STD Onset (ago): week(s) (1) Location of symptoms: external genitalia and urethra Severity: moderate Female Urogenital Radiation: Non-Radiating Severity scale (1-10): 6 Quality of pain: sharp and burning Consistency: constant Vaginal discharge: yellow Vaginal bleeding: none Urinary symptoms: Dysuria Exacerbating factors: none Relieving factors: none Associated symptoms: denies other symptoms Treatment prior to arrival: none Sexual activity: Yes and New Sexual Partners Patient : No Possible : unsure if Related Data Home Medications Medication Instructions Recorded Confirmed bupropion HCl 300 mg 24 hr tablet, 300 mg PO DAILY 09/25/22 12/08/23 extended release Allergies Allergy/AdvReac Type Severity Reaction Status Date / Time Penicillins AdvReac Hives Verified 10/19/23 14:46 Review of Systems Review of Systems: All systems reviewed & are unremarkable except as noted in HPI and below Constitutional: Constitutional: Reports no additional constitutional complaints Eyes: Eyes: Reports no additional eye complaints ENT: Reports system reviewed and no additional complaints, except as documented Cardiovascular: Cardiovascular: Reports no additional cardiovascular complaints Respiratory: Respiratory: Reports no additional respiratory complaints Gastrointestinal: Gastrointestinal: Reports no additional gastrointestinal complaints Genitourinary: Genitourinary: Reports no additional female genitourinary complaints Musculoskeletal: Musculoskeletal: Reports no additional musculoskeletal complaints Integumentary/Breasts: Skin/Breast: Reports system reviewed and no additional complaints, except as docu Neurologic: Reports system reviewed and no additional complaints, except as documented Psychiatric: Psychiatric: Reports no additional psychiatric complaints Endocrine: Endocrine: Reports no additional endocrine complaints Hematologic/Lymphatic: Hematologic/Lymphatic: Reports no additional hematologic/lymphatic complaints Allergic/Immunologic: Allergic/Immunologic: Reports no additional allergic/immunologic complaints PMFSH Past Medical History Medical History Bipolar disorder Contusion of forearm, left Methamphetamine use Opiate dependence Surgical History Surgical History Hx LEEP (loop electrosurgical e
--- NOTE | 2023-12-08 00:57 | PC.NURSE ---
ER provider at the bedside with nolan Rivera, as cigarette carton sealer.
[2023-12-08] MEDS: valACYclovir HCL 500 MG TABLET 1000 MG PO (01:12)
== END 2023-12-08 01:23 | disposition home or self-care (01) ==
PROVIDERS: Emergency Provider Emergency Medicine; PCP Family Medicine
DX: A60.04 Herpesviral vulvovaginitis (principal); F17.210 Nicotine dependence, cigarettes, uncomplicated; Z79.899 Other long term (current) drug therapy
CPT/HCPCS: 99283; A9270

== ENCOUNTER 2024-11-10 13:24 | Emergency (ER) | payer OTHER, SELFPAY ==
--- NOTE | ~2024-11-10 | XR_ITS ---
XR forearm LT 2V 11/10/2024 13:57 INDICATION: Left arm pain PROCEDURE: 2 view chest COMPARISON: No prior studies for comparison. FINDINGS: Fracture, dislocation or subluxation is not identified. The soft tissues appear within norm al limits. No foreign bodies are identified. IMPRESSION: 1: NO ACUTE BONE OR JOINT ABNORMALITY IDENTIFIED. Reviewed, dictated and finalized at location A.
[2024-11-10 13:25] VITALS: BP 121/79; PULSE 101; RESP 16; TEMP 36.8; O2SAT 100
--- NOTE | 2024-11-10 13:43 | ED.UPPEXIN ---
HPI - Extremity Injury (Upper) General Chief Complaint: Extremity Injury, Upper Stated Complaint: left arm pain Time Seen by Provider: 11/10/24 13:40 Source: patient Mode of arrival: ambulatory Limitations: no limitations History of Present Illness HPI narrative: Patient is a 34-year-old female with a left forearm injury after falling forward while walking up stairs. She said this was an accident and nobody has hurt her. No other injuries. complaint: injury to: left and forearm Onset (ago): hour(s) ( One) Other injuries: none Place: home Severity: mild Severity scale (1-10): 3 Relieving factors: immobilization Exacerbating factors: movement of extremity Context: fall Associated symptoms: denies other symptoms Treatments prior to arrival: other ( none) Related Data Home Medications ?Medication ?Instructions ?Recorded ?Confirmed ?Last Taken ?Type bupropion HCl 300 mg 24 hr tablet, 300 mg PO DAILY 09/25/22 12/08/23 Unknown History extended release Allergies Allergy/AdvReac Type Severity Reaction Status Date / Time Penicillins AdvReac Hives Verified 10/19/23 14:46 Review of Systems Review of Systems: All systems reviewed & are unremarkable except as noted in HPI and below Constitutional: Constitutional: Reports no additional constitutional complaints Eyes: Eyes: Reports no additional eye complaints ENT: Reports system reviewed and no additional complaints, except as documented Cardiovascular: Cardiovascular: Reports no additional cardiovascular complaints Respiratory: Respiratory: Reports no additional respiratory complaints Gastrointestinal: Gastrointestinal: Reports no additional gastrointestinal complaints Genitourinary: Genitourinary: Reports no additional female genitourinary complaints Musculoskeletal: Musculoskeletal: Reports no additional musculoskeletal complaints Integumentary/Breasts: Skin/Breast: Reports system reviewed and no additional complaints, except as docu Neurologic: Reports system reviewed and no additional complaints, except as documented Psychiatric: Psychiatric: Reports no additional psychiatric complaints Endocrine: Endocrine: Reports no additional endocrine complaints Hematologic/Lymphatic: Hematologic/Lymphatic: Reports no additional hematologic/lymphatic complaints Allergic/Immunologic: Allergic/Immunologic: Reports no additional allergic/immunologic complaints PMFSH Past Medical History Medical History Bipolar disorder Methamphetamine use Opiate dependence Contusion of forearm, left Surgical History Surgical History Hx LEEP (loop electrosurgical excision procedure), cervix, Family History Family History Father Diabetes mellitus Heart disease Cerebrovascular accident Other Cancer Hypertension Kidney disease Social History Social History Smoking status: Current every day smoker Second hand tobacco smoke exposure: Yes Additional smoking assessment comments: 3 cigarettes per day Alcohol intake: never Substance use: never Substance use type: former substance user Do You Feel Safe in your Home?: Yes Lack of Transportation: No Lack of Food: Never True Current Housing: I Have Housing Concerned About Future Housing: No Difficulty Paying Gas/Electric Bills: No Difficulty Paying for Meds: No Currently Unemployed: No Education: High School Diploma/GED Difficulty w/ Childcare or Family Care: No Occupation/Education: occupation 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 [employer] Gender identity (if verbalized by the patient): Female Spiritual care concerns: No Exam Const: General: healthy appearing Nutritional Appearance: well nourished Orientation/consciousness: patient oriented x3 HENMT: Head: normal to inspection Ears: external ears normal Face/Nose/Sinus: Normal external nose present Eyes: Conjunctivae: conjunctivae normal Pupils: Equal, round and reactive pupils present EOM: EOMs intact bilaterally Neck: Neck: normal visual inspection Chest: Chest palpation & inspection: normal inspection of the chest Resp: Effort & Inspection: normal respiratory effort and not labored Auscultation: clear to auscultation bilaterally and no crackles Cardio: Rate: regular rate Rhythm: regular rhythm Heart sounds: no murmurs GI: Inspection: non-distended GI Palp: Yes Soft to palpation and No Tenderness to palpation present (GI) Auscultation: normal bowel sounds : General: Yes bladder normal to palpation Back/Spine/Pelvis: Back: no CVA tenderness Skin: General skin exam: normal color Rashes: no rashes Wounds: no wounds Neuro: General: patient oriented x3 Cranial nerves: Yes Nystagmus not present Speech: normal speech Extrem: General: normal to inspection Other: left forearm has slight nodularity to examination of palpation and tenderness on a few different areas of the lateral and medial aspect of the forearm; slight ecchymosis; slight deformity; normal hand and wrist and elbow Psych: Mental Status: mental status grossly normal Affect: normal affect Attitude: cooperative Course Vital Signs Vital signs: Vital Signs Temperature 36.8 C 11/10/24 13:25 Pulse Rate 101 H 11/10/24 13:25 Respiratory Rate 16 11/10/24 13:25 Blood Pressure 121/79 11/10/24 13:25 Pulse Oximetry 100 11/10/24 13:25 Oxygen Delivery Room Air 11/10/24 13:25 Temperature 36.8 C 11/10/24 13:25 Pulse Rate 101 H 11/10/24 13:25 Respiratory Rate 16 11/10/24 13:25 Blood Pressure 121/79 11/10/24 13:25 Pulse Oximetry 100 11/10/24 13:25 Oxygen Delivery Room Air 11/10/24 13:25 MDM - Extremity Injury (Upper) MDM Narrative Medical decision making narrative: patient is a 34-year-old female with a left forearm injury. We will get an x-ray at this time. Imaging Data Attestation: I personally reviewed and interpreted this imaging study as follows: Radiologist's impression: X-ray left forearm was negative for acute process Discharge Plan Discharge Clinical Impression: Contusion of forearm Qualifiers: Encounter type: initial encounter Laterality: left Qualified Code(s): S50.12XA - Contusion of left forearm, initial encounter Patient Disposition: Home Condition: Stable Instructions: Contusion in Adults (ED) Patient Language: Armenian Prescriptions: No Action valacyclovir [Valtrex] 1 gram tablet 1,000 mg PO BID 10 Days Qty: 20 0RF bupropion HCl 300 mg tablet extended release 24 hr 300 mg PO DAILY Follow-up/Referrals: Julia,MD Kojo [Primary Care Provider] - Time of Disposition: 14:16
[2024-11-10 14:38] VITALS: BP 120/80; PULSE 75; RESP 20; O2SAT 98
== END 2024-11-10 14:38 | disposition home or self-care (01) ==
PROVIDERS: Emergency Provider Emergency Medicine; PCP Family Medicine
DX: S50.12XA Contusion of left forearm, initial encounter (principal); F17.210 Nicotine dependence, cigarettes, uncomplicated; W10.9XXA Fall (on) (from) unspecified stairs and steps, initial encounter; Y92.009 Unspecified place in unspecified non-institutional (private) residence as the place of occurrence of the external cause
CPT/HCPCS: 73090; 99283

== ENCOUNTER 2025-02-04 15:52 | Emergency (ER) | payer OTHER, SELFPAY ==
[2025-02-04 15:52] VITALS: BP 119/75; PULSE 85; RESP 16; TEMP 36.6; O2SAT 100
--- NOTE | 2025-02-04 15:53 | ED_ITS ---
HPI - Skin/Abscess/Foreign Bdy General Chief complaint: Skin/Abscess/Foreign Body Stated complaint: spider bite Time Seen by Provider: 02/04/25 15:53 Source: patient Mode of arrival: ambulatory Limitations: no limitations History of Present Illness HPI narrative: patient is a 34-year-old female with multiple bites on her right and left arm upper extremity. She has noted these over the past week. She found a spider in her room and brought in for evaluation today. Upon examination of the spider it appears to be a nonvenomous type spider. There are changes of redness around the areas of spider bites. MD complaint: insect bite/sting Onset (ago): week(s) ( One) Location: LUE and RUE Severity: moderate Severity scale (1-10): 4 Quality: burning Pain Consistency: constant Relieving factors: none Exacerbating factors: none Context: other ( patient has multiple spider bite wounds on bilateral upper extremity with early signs of infection) Associated symptoms: denies other symptoms Treatments prior to arrival: none Related Data Home Medications ?Medication ?Instructions ?Recorded ?Confirmed ?Last Taken ?Type bupropion HCl 300 mg 24 hr tablet, 300 mg PO DAILY 09/25/22 12/08/23 Unknown History extended release Allergies Allergy/AdvReac Type Severity Reaction Status Date / Time Penicillins AdvReac Hives Verified 02/04/25 15:57 Review of Systems Review of Systems: All systems reviewed & are unremarkable except as noted in HPI and below Constitutional: Constitutional: Reports no additional constitutional complaints Eyes: Eyes: Reports no additional eye complaints ENT: Reports system reviewed and no additional complaints, except as documented Cardiovascular: Cardiovascular: Reports no additional cardiovascular complaints Respiratory: Respiratory: Reports no additional respiratory complaints Gastrointestinal: Gastrointestinal: Reports no additional gastrointestinal complaints Genitourinary: Genitourinary: Reports no additional female genitourinary complaints Musculoskeletal: Musculoskeletal: Reports no additional musculoskeletal complaints Integumentary/Breasts: Skin/Breast: Reports system reviewed and no additional complaints, except as docu Neurologic: Reports system reviewed and no additional complaints, except as documented Psychiatric: Psychiatric: Reports no additional psychiatric complaints Endocrine: Endocrine: Reports no additional endocrine complaints Hematologic/Lymphatic: Hematologic/Lymphatic: Reports no additional hematologic/lymphatic complaints Allergic/Immunologic: Allergic/Immunologic: Reports no additional allergic/immunologic complaints [facility] Past Medical History Medical History Bipolar disorder Methamphetamine use Opiate dependence Contusion of forearm, left Surgical History Surgical History Hx LEEP (loop electrosurgical excision procedure), cervix, Family History Family History Father Diabetes mellitus Heart disease Cerebrovascular accident Other Cancer Hypertension Kidney disease Social History Social History Smoking status: Current every day smoker Second hand tobacco smoke exposure: Yes Additional smoking assessment comments: 3 cigarettes per day Alcohol intake: never Substance use: never Substance use type: former substance user Do You Feel Safe in your Home?: Yes Lack of Transportation: No Lack of Food: Never True Current Housing: I Have Housing Concerned About Future Housing: No Difficulty Paying Gas/Electric Bills: No Difficulty Paying for Meds: No Currently Unemployed: No Education: High School Diploma/GED Difficulty w/ Childcare or Family Care: No Occupation/Education: occupation 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 [employer] Gender identity (if verbalized by the patient): Female Spiritual care concerns: No Exam Const: General: healthy appearing Nutritional Appearance: well nourished Orientation/consciousness: patient oriented x3 HENMT: Head: normal to inspection Ears: external ears normal Face/Nose/Sinus: Normal external nose present Eyes: Conjunctivae: conjunctivae normal Pupils: Equal, round and reactive pupils present EOM: EOMs intact bilaterally Neck: Neck: normal visual inspection Chest: Chest palpation & inspection: normal inspection of the chest Resp: Effort & Inspection: normal respiratory effort and not labored Auscultation: clear to auscultation bilaterally and no crackles Cardio: Rate: regular rate Rhythm: regular rhythm Heart sounds: no murmurs GI: Inspection: non-distended GI Palp: Yes Soft to palpation and No Tenderness to palpation present (GI) Auscultation: normal bowel sounds : General: Yes bladder normal to palpation Back/Spine/Pelvis: Back: no CVA tenderness Skin: General skin exam: normal color Rashes: no rashes Wounds: wound noted Other: right greater than left upper extremity wounds /insect bites with erythema around the nidus of opening but no pus seen or abscess Neuro: General: patient oriented x3, moves all extremities, no meningeal signs, no focal motor deficits and CN's II-XI intact bilaterally Extrem: General: normal to inspection Psych: Mental Status: mental status grossly normal Affect: normal affect Attitude: cooperative Course Vital Signs Vital signs: Vital Signs Temperature 36.6 C 02/04/25 15:52 Pulse Rate 85 02/04/25 15:52 Respiratory Rate 16 02/04/25 15:52 Blood Pressure 119/75 02/04/25 15:52 Pulse Oximetry 100 02/04/25 15:52 Oxygen Delivery Room Air 02/04/25 15:52 Temperature 36.6 C 02/04/25 16:57 Pulse Rate 85 02/04/25 16:57 Respiratory Rate 16 02/04/25 16:57 Blood Pressure 119/75 02/04/25 16:57 Pulse Oximetry 100 02/04/25 16:57 Oxygen Delivery Room Air 02/04/25 16:57 MDM - Skin/Abscess/Foreign Bdy MDM Narrative Medical decision making narrative: patient is a 34-year-old female with bilateral upper extremity spider bites and signs of infection. We will put the patient on doxycycline. She did not want topicals. Discharge Plan Discharge Clinical Impression: Nonvenomous spider bite Patient Disposition: Home Condition: Stable Instructions: Insect Bite or Sting (ED) Patient Language: Jamaican Prescriptions: New doxycycline monohydrate 100 mg capsule 100 mg PO BID 10 Days Qty: 20 0RF No Action valacyclovir [Valtrex] 1 gram tablet 1,000 mg PO BID 10 Days Qty: 20 0RF bupropion HCl 300 mg tablet extended release 24 hr 300 mg PO DAILY Follow-up/Referrals: Julia,MD Kojo [Primary Care Provider] - Time of Disposition: 16:52
--- OUTSIDE RECORDS SUMMARY | 2025-02-04 15:54 | XMS_ITS | Clinical Summary ---
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 If not , patient plans to obtain Nexplanon with PCP. Encounters Date Type Department Care Team Description 11/10/2024 5:00 PM CDT - 11/10/2024 6:04 PM CDT Emergency [facility] Emergency Department [address] [place] [address] Left arm pain (Primary Dx) Discharge Disposition: Discharge to home or self care from Last 3 Months Social History Tobacco Use Types Packs/Day Years Used Date Smoking Tobacco: Every Day Cigarettes 0.5 15 Personal Safety Answer Date Recorded Have you ever been in or are you currently in a harmful physical or emotional relationship or is someone making you feel afraid or unsafe? 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 Gender Identity Not on file Sexual Orientation Not on file Obstetrics History Para Term AB IAB SAB Ectopic Multiple Livin g Live Births 4 3 3 1 1 3 3 Date Outcome GA Total Labor Labor/2nd/3rd Weight Sex Type Anes PTL Macarena A1 A5 Name Clin 2006 Term F Vag-S pont Living 2011 SAB 2014 Term M Vag-S pont Living 2018 Term F Vag-S pont Living Last Filed Vital Signs Vital Sign Reading Time Taken Comments Blood Pressure 126/68 11/10/2024 4:59 PM CDT Pulse 92 11/10/2024 4:59 PM CDT Temperature 36.8 C (98.3 F) 11/10/2024 4:58 PM CDT Respiratory Rate 16 11/10/2024 4:58 PM CDT Oxygen Saturation 99% 11/10/2024 4:59 PM CDT Inhaled Oxygen Concentration - - Weight 53.1 kg (117 lb) 11/10/2024 4:58 PM CDT Height 162.6 cm (5' 4) 11/10/2024 4:58 PM CDT Body Mass Index 20.08 11/10/2024 4:58 PM CDT Plan of Treatment Health Maintenance Due Date Last Done Comments Cervical Cancer Screening 1988 Depression Screening 1988 Hepatitis C Screening 1988 Varicella Vaccines (1 of 2 - 13+ 2-dose series) 02/23/2001 Regular Well Visit/Exam 18-64 02/23/2006 Pneumococcal vaccine <65 (1 of 2 - PCV) 02/23/2007 HPV Vaccines (1 - 3-dose SCD M series) 02/23/2015 Influenza Vaccine (#1) 2025 9, 04/06/2018, 04/01/2015 DTaP/Tdap/Td Vaccine (10 - T d or Tdap) 02/27/2030 02/28/2020, 06/15/2019, 04/01/2015, Additional history exists Hepatitis B Screening Completed 07/29/1999 , 04/30/1998, 03/26/1998 Procedures Procedure Name Priority Date/Time Associated Diagnosis Comments XR RADIUS ULNA LEFT 2 VIEWS ED 11/10/2024 5:31 PM CDT from Last 3 Months Results * XR Radius Ulna Left 2 Views (11/10/2024 5:31 PM CDT) Anatomical Region Laterality Modality Upper Extremities, Forearm Left Compu evangelina Radiography 11/10/2024 5:40 PM CDT Narrative 11/10/2024 5:45 PM CDT EXAM DESCRIPTION: XR RADIUS ULNA LEFT 2 VIEWS REASON FOR STUDY: pain Complaint of L forearm pain after she tripped and hit it off a wall last night. States she was seen at [facility] for this, but wants a second opinion. TECHNIQUE: 2 radiographic view(s) of the left forearm . COMPARISON: None. FINDINGS: BONES/JOINTS: No acute displaced fracture or dislocation. No aggressive-appearing lesion. SOFT TISSUES: No significant abnormality. IMPRESSION: No acute osseous abnormality. THIS IS AN ELECTRONICALLY VERIFIED FINAL REPORT 11/10/2024 5:45 PM - Electronically signed by Sergio Thomas M.D. NS: NS Report ID: [id number] Reading Location: [id number] Procedure Note Sergio Thomas MD - 11/10/2024 EXAM DESCRIPTION: XR RADIUS ULNA LEFT 2 VIEWS REASON FOR STUDY: pain Complaint of L forearm pain after she tripped and hit it off a wall last night. States she was seen at [facility] for this, but wants a second opinion. TECHNIQUE: 2 radiographic view(s) of the left forearm . COMPARISON: None. FINDINGS: BONES/JOINTS: No acute displaced fracture or dislocation. No aggressive-appearing lesion. SOFT TISSUES: No significant abnormality. IMPRESSION: No acute osseous abnormality. THIS IS AN ELECTRONICALLY VERIFIED FINAL REPORT 11/10/2024 5:45 PM - Electronically signed by Sergio Thomas M.D. NS: NS Report ID: [id number] Reading Location: [id number] [facility] XR PROCEDURES Final Result from Last 3 Months Insurance AETNA [facility] Care Teams Litigation Coordinator Relationship Specialty Start Date End Date Kojo Dumont MD [address] [place] [id number] PCP - General Family Medicine 11/10/24
--- OUTSIDE RECORDS SUMMARY | 2025-02-04 15:54 | XMS_ITS | Referral Summary ---
Author Organization [facility] Address [address] [place] [address] Care Team Providers Care Machine Stonecutter Name Role Phone Kojo Dumont MD Primary Care Provider Encounters Date Type Department Care Team Description 11/10/2024 5:00 PM CDT - 11/10/2024 6:04 PM CDT Emergency [facility] Emergency Department [address] [place] [address] Left arm pain (Primary Dx) Discharge Disposition: Discharge to home or self care from Last 3 Months Allergies Active Allergy Reactions Criticality Noted Date [...] patient plans to obtain Nexplanon with PCP. 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 States she was seen at [facility] for this, but wants a second opinion. TECHNIQUE: 2 radiographic view(s) of the left forearm . COMPARISON: None. FINDINGS: BONES/JOINTS: No acute displaced fracture or dislocation. No aggressive-appearing lesion. SOFT TISSUES: No significant abnormality. IMPRESSION: No acute osseous abnormality. THIS IS AN ELECTRONICALLY VERIFIED FINAL REPORT 11/10/2024 5:45 PM - Electronically signed by Sergio Thomas M.D. NS: NS Report ID: [id number] Reading Location: [id number] Procedure Note Sergio Thomas MD - 11/10/2024 EXAM DESCRIPTION: XR RADIUS ULNA LEFT 2 VIEWS REASON FOR STUDY: pain Complaint of L forearm pain after she tripped and hit it off a wall last night. States she was seen at [facility] for this, but wants a second opinion. TECHNIQUE: 2 radiographic view(s) of the left forearm . COMPARISON: None. FINDINGS: BONES/JOINTS: No acute displaced fracture or dislocation. No aggressive-appearing lesion. SOFT TISSUES: No significant abnormality. IMPRESSION: No acute osseous abnormality. THIS IS AN ELECTRONICALLY VERIFIED FINAL REPORT 11/10/2024 5:45 PM - Electronically signed by Sergio Thomas M.D. NS: NS Report ID: [id number] Reading Location: [id number] [facility] XR PROCEDURES Final Result from Last 3 Months Insurance AETNA [facility] Care Teams Machine Stonecutter Relationship Specialty Start Date End Date Kojo Dumont MD [address] [place] [id number] PCP - General Family Medicine 11/10/24
--- OUTSIDE RECORDS SUMMARY | 2025-02-04 16:28 | XMS_ITS | Referral Summary ---
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 States she was seen at [facility] for this, but wants a second opinion. TECHNIQUE: 2 radiographic view(s) of the left forearm . COMPARISON: None. FINDINGS: BONES/JOINTS: No acute displaced fracture or dislocation. No aggressive-appearing lesion. SOFT TISSUES: No significant abnormality. IMPRESSION: No acute osseous abnormality. THIS IS AN ELECTRONICALLY VERIFIED FINAL REPORT 11/10/2024 5:45 PM - Electronically signed by Sergio Thomas M.D. NS: NS Report ID: [id number] Reading Location: [id number] Procedure Note Sergio Thomas MD - 11/10/2024 EXAM DESCRIPTION: XR RADIUS ULNA LEFT 2 VIEWS REASON FOR STUDY: pain Complaint of L forearm pain after she tripped and hit it off a wall last night. States she was seen at [facility] for this, but wants a second opinion. TECHNIQUE: 2 radiographic view(s) of the left forearm . COMPARISON: None. FINDINGS: BONES/JOINTS: No acute displaced fracture or dislocation. No aggressive-appearing lesion. SOFT TISSUES: No significant abnormality. IMPRESSION: No acute osseous abnormality. THIS IS AN ELECTRONICALLY VERIFIED FINAL REPORT 11/10/2024 5:45 PM - Electronically signed by Sergio Thomas M.D. NS: NS Report ID: [id number] Reading Location: [id number] [facility] XR PROCEDURES Final Result from Last 3 Months Insurance AETNA [facility] Care Teams Dice Maker Relationship Specialty Start Date End Date Kojo Dumont MD [address] [place] [id number] PCP - General Family Medicine 11/10/24
--- OUTSIDE RECORDS SUMMARY | 2025-02-04 16:28 | XMS_ITS | Clinical Summary ---
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 States she was seen at [facility] for this, but wants a second opinion. TECHNIQUE: 2 radiographic view(s) of the left forearm . COMPARISON: None. FINDINGS: BONES/JOINTS: No acute displaced fracture or dislocation. No aggressive-appearing lesion. SOFT TISSUES: No significant abnormality. IMPRESSION: No acute osseous abnormality. THIS IS AN ELECTRONICALLY VERIFIED FINAL REPORT 11/10/2024 5:45 PM - Electronically signed by Sergio Thomas M.D. NS: NS Report ID: [id number] Reading Location: [id number] Procedure Note Sergio Thomas MD - 11/10/2024 EXAM DESCRIPTION: XR RADIUS ULNA LEFT 2 VIEWS REASON FOR STUDY: pain Complaint of L forearm pain after she tripped and hit it off a wall last night. States she was seen at [facility] for this, but wants a second opinion. TECHNIQUE: 2 radiographic view(s) of the left forearm . COMPARISON: None. FINDINGS: BONES/JOINTS: No acute displaced fracture or dislocation. No aggressive-appearing lesion. SOFT TISSUES: No significant abnormality. IMPRESSION: No acute osseous abnormality. THIS IS AN ELECTRONICALLY VERIFIED FINAL REPORT 11/10/2024 5:45 PM - Electronically signed by Sergio Thomas M.D. NS: NS Report ID: [id number] Reading Location: [id number] Melinda BRANTLEY IMG XR PROCEDURES Final Result from Last 3 Months Insurance [employer] [facility] Care Teams Procedures Tech Relationship Specialty Start Date End Date Kojo Dumont MD [address] [place] [id number] PCP - General Family Medicine 11/10/24
[2025-02-04] MEDS: DOXYCYCLINE HYCLATE 100 MG TABLET PO (16:53)
[2025-02-04 16:57] VITALS: BP 119/75; PULSE 85; RESP 16; TEMP 36.6; O2SAT 100
== END 2025-02-04 16:57 | disposition home or self-care (01) ==
PROVIDERS: Emergency Provider Emergency Medicine; PCP Family Medicine
DX: T63.301A Toxic effect of unspecified spider venom, accidental (unintentional), initial encounter (principal); F17.210 Nicotine dependence, cigarettes, uncomplicated
CPT/HCPCS: 99283; A9270

== ENCOUNTER 2025-04-13 18:54 | Emergency (ER) | payer OTHER, SELFPAY ==
--- NOTE | ~2025-04-13 | XR_ITS ---
EXAMINATION: [id number] DATE: 04/13/2025 19:43 INDICATION: Left chest wall pain post fall TECHNIQUE: PA view of the chest and 3 views of the left ribs were obtained. COMPARISON: None FINDINGS: No rib fractures identified. Lungs are clear with no focal airspace opacities, pulmonary edema, pleural effusion or pneumothorax. Cardiomediastinal silhouette is normal. Mild upper thoracic levocurvature with mild compensatory dextrocurvature in the mid to lower thoracic spine. Cholecystectomy clips in right upper quadrant. IMPRESSION: 1. No rib fracture or acute cardiopulmonary disease. Reviewed, dictated and finalized at location A.
[2025-04-13 18:54] VITALS: BP 123/78; PULSE 99; RESP 16; TEMP 36.9; O2SAT 100
--- NOTE | 2025-04-13 19:31 | ED_ITS ---
HPI - Fall General Chief Complaint: Fall Stated Complaint: fall; left side rib and elbow pain Time Seen by Provider: 04/13/25 19:08 Source: patient Mode of arrival: ambulatory Limitations: no limitations History of Present Illness HPI Narrative: 35-year-old female presents to the ED after an accidental fall 4 days ago. And she fell on her left side and developed -- left lower chest wall pain. Pain is made worse by deep breathing and coughing. No shortness of breath. No fever or chills. -- Left elbow pain. No other injuries noted. No head injury. No neck or spine injury. No abrasions or lacerations. MD complaint: fall Onset (ago): day(s) ( Four days ago) Fall from: standing Place fall occurred: home Loss of consciousness: none Prolonged down time: no Symptoms prior to fall: none Context: tripped/slipped Location of injury: chest Location of injury - extremities: Left: elbow Quality: sharp and stabbing Associated symptoms (after fall): denies Related Data Home Medications ?Medication ?Instructions ?Recorded ?Confirmed ?Last Taken ?Type bupropion HCl 300 mg 24 hr tablet, 300 mg PO DAILY 12/08/23 Unknown History extended release Allergies Allergy/AdvReac Type Severity Reaction Status Date / Time Penicillins AdvReac Hives Verified 04/13/25 19:06 Review of Systems Review of Systems: All systems reviewed & are unremarkable except as noted in HPI and below Constitutional: Constitutional: Reports as per HPI and Reports no additional constitutional complaints Eyes: Eyes: Reports as per HPI and Reports no additional eye complaints ENT: Reports system reviewed and no additional complaints, except as documented and Reports as per HPI Cardiovascular: Cardiovascular: Reports as per HPI and Reports no additional cardiovascular complaints Respiratory: Respiratory: Reports as per HPI and Reports no additional respiratory complaints Comments: left chest wall pain. No bruising Gastrointestinal: Gastrointestinal: Reports as per HPI and Reports no additi onal gastrointestinal complaints Genitourinary: Genitourinary: Reports no additional female genitourinary complaints and Reports as per HPI Musculoskeletal: Musculoskeletal: Reports no additional musculoskeletal complaints and Reports as per HPI Integumentary/Breasts: Skin/Breast: Reports system reviewed and no additional complaints, except as docu and Reports as per HPI Neurologic: Reports system reviewed and no additional complaints, except as documented and Reports as per HPI Psychiatric: Psychiatric: Reports no additional psychiatric complaints and Reports as per HPI Endocrine: Endocrine: Reports no additional endocrine complaints and Reports as per HPI Hematologic/Lymphatic: Hematologic/Lymphatic: Reports no additional hematologic/lymphatic complaints and Reports as per HPI Allergic/Immunologic: Allergic/Immunologic: Reports no additional allergic/immunologic complaints and Reports as per HPI [facility] Past Medical History Medical History Bipolar disorder Methamphetamine use Opiate dependence Contusion of forearm, left Surgical History Surgical History Hx LEEP (loop electrosurgical excision procedure), cervix, Family History Family History Father Diabetes mellitus Heart disease Cerebrovascular accident Other Cancer Hypertension Kidney disease Social History Social History Smoking status: Current every day smoker Second hand tobacco smoke exposure: Yes Additional smoking assessment comments: 3 cigarettes per day Alcohol intake: never Substance use: never Substance use type: former substance user Do You Feel Safe in your Home?: Yes Lack of Transportation: No Lack of Food: Never True Current Housing: I Have Housing Concerned About Future Housing: No Difficulty Paying Gas/Electric Bills: No Difficulty Paying for Meds: No Currently Unemployed: No Education: High School Diploma/GED Difficulty w/ Childcare or Family Care: No Occupation/Education: occupation 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 Oxygen saturation of 100% on room air with a respiratory rate of 16. Const: General: no acute distress Orientation/consciousness: patient oriented x3 Limitations: no limitations HENMT: Head: normal to inspection Ears: external ears normal Face/Nose/Sinus: Normal external nose present and Normal nares present Face and sinus: normal facial exam Mouth: Yes Normal oral and palatal mucosa present Throat: posterior oropharynx normal Eyes: Conjunctivae: conjunctivae normal Pupils: Equal, round and reactive pupils present EOM: EOMs intact bilaterally Direct Ophthalmoscopy: no photophobia Neck: Neck: normal visual inspection, no lymphadenopathy and no meningeal signs Chest: Chest palpation & inspection: normal inspection of the chest Other: Left lower chest wall pain Resp: Effort & Inspection: normal respiratory effort Auscultation: clear to auscultation bilaterally Other: left lower chest wall tenderness. Air entry is good In the left lower chest. No added sounds. No bruising on the chest wall Cardio: Rate: regular rate Rhythm: regular rhythm GI: Auscultation: normal bowel sounds Other: abdomen is soft and nontender. No tenderness noted in the left flank and left upper quadrant : General: Yes no CVA tenderness Back/Spine/Pelvis: Back: no CVA tenderness Skin: General skin exam: normal color Rashes: no rashes Wounds: no wounds Neuro: General: patient oriented x3, moves all extremities, no meningeal signs, no focal motor deficits and CN's II-XI intact bilaterally Cranial nerves: Yes Nystagmus not present Speech: normal speech Gait exam (Neuro): Normal gait present Extrem: General: normal to inspection and no clubbing, cyanosis or edema Other: left elbow-- no swelling. Normal range of motion. Psych: Mental Status: mental status grossly normal Affect: normal affect Attitude: cooperative Course Course Emergency Course: Accidental fall with left chest wall pain-- chest x-ray did not show any rib fractures. No abdominal pain. Abdominal examination is unremarkable. Left elbow-- normal range of motion. Vital Signs Vital signs: Vital Signs Temperature 36.9 C 04/13/25 18:54 Pulse Rate 99 04/13/25 18:54 Respiratory Rate 16 04/13/25 18:54 Blood Pressure 123/78 04/13/25 18:54 Pulse Oximetry 100 04/13/25 18:54 Oxygen Delivery Room Air 04/13/25 18:54 Temperature 36.9 C 04/13/25 18:54 Pulse Rate 99 04/13/25 18:54 Respiratory Rate 16 04/13/25 18:54 Blood Pressure 123/78 04/13/25 18:54 Pulse Oximetry 100 04/13/25 18:54 Oxygen Delivery Room Air 04/13/25 18:54 MDM - Fall MDM Narrative Medical decision making narrative: Accidental fall chest wall pain Differential Diagnosis Differential diagnosis: Likely other ( chest wall contusion. Fracture ribs) Medical Records Attestation: I reviewed the patient's medical records. Lab Data Attestation: I reviewed the patient's lab results. Discharge Plan Discharge Clinical Impression: Acute chest wall pain Accidental fall Qualifiers: Encounter type: initial encounter Qualified Code(s): W19.XXXA - Unspecified fall, initial encounter Patient Disposition: Home Condition: Stable Instructions: Antibiotic Form, Chest Wall Pain (ED) Patient Language: Divehi Prescriptions: No Action valacyclovir [Valtrex] 1 gram tablet 1,000 mg PO BID 10 Days Qty: 20 0RF bupropion HCl 300 mg tablet extended release 24 hr 300 mg PO DAILY doxycycline monohydrate 100 mg capsule 100 mg PO BID 10 Days Qty: 20 0RF Follow-up/Referrals: Julia,MD Kojo [Primary Care Provider, [facility]] Time of Disposition: 20:35
[2025-04-13 20:50] VITALS: BP 120/75; PULSE 85; RESP 16; TEMP 37; O2SAT 100
== END 2025-04-13 20:50 | disposition home or self-care (01) ==
PROVIDERS: Emergency Provider Internal Medicine Critical Care Medicine; PCP Family Medicine
DX: R07.89 Other chest pain (principal); F17.210 Nicotine dependence, cigarettes, uncomplicated; W19.XXXA Unspecified fall, initial encounter
CPT/HCPCS: 71101; 99283

== ENCOUNTER 2025-04-23 00:13 | Emergency (ER) | payer OTHER, SELFPAY ==
--- NOTE | ~2025-04-23 | XR_ITS ---
Examination: XR ankle LT min 3V Clinical History: POSTERIOR LEFT ANKLE PAIN. STRIKING INJURY. Comparison: None Technique: 4 views left ankle Findings/impression: 1. No fracture or dislocation left ankle. Reviewed, dictated and finalized at location R.
[2025-04-23 00:17] VITALS: BP 121/79; PULSE 92; RESP 16; TEMP 37; O2SAT 100
--- OUTSIDE RECORDS SUMMARY | 2025-04-23 00:26 | XMS_ITS | Clinical Summary ---
Author Organization 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
--- NOTE | 2025-04-23 00:53 | ED.GENADULT ---
HPI - General Adult General Chief complaint: Extremity Injury, Lower Stated complaint: injury leg Time Seen by Provider: 04/23/25 00:53 Source: patient Mode of arrival: ambulatory Limitations: no limitations History of Present Illness HPI narrative: The patient is a 35 year old woman with a history of opiate use disorder, bipolar affective disorder, and methamphetamine use. She has been clean since 2019 and has not used opiates since that time. Last menstrual. Three days ago. She was walking down a hill 2 days ago when a hitch of a trailer from a lawnmower got loose and struck her in the Achilles region, posterior ankle. She was able to make it back home which was 1 block away. She has taken ibuprofen for pain. She has been using walking boot which helps alleviate her symptoms and make sure able to walk better. There is bruising in the posterior ankle. There is no pain at either malleolus or in the foot itself. No other injuries. No other complaints. Related Data Home Medications ?Medication ?Instructions ?Recorded ?Confirmed ?Last Taken ?Type bupropion HCl 300 mg 24 hr tablet, 300 mg PO DAILY 09/25/22 12/08/23 Unknown History extended release Allergies Allergy/AdvReac Type Severity Reaction Status Date / Time Penicillins AdvReac Hives Verified 04/23/25 00:20 Review of Systems Review of Systems: All systems reviewed & are unremarkable except as noted in HPI and below Constitutional: Constitutional: Denies chills, Denies excessive sweating, Denies fatigue, Denies fever(s), Denies headache(s) and Denies weakness Eyes: Eyes: Denies change in vision and Denies photophobia ENT: Denies dysphagia, Denies dizziness, Denies headache(s), Denies lip swelling, Denies nasal congestion, Denies sore throat and Denies tongue swelling Cardiovascular: Cardiovascular: Denies chest pain, Denies syncope, Denies rapid heart rate and Denies dyspnea Respiratory: Respiratory: Denies cough, Denies dyspnea and Denies wheezing Gastrointestinal: Gastrointestinal: Denies abdominal pain, Denies constipation, Denies dysphagia, Denies diarrhea, Denies nausea and Denies vomiting Genitourinary: Genitourinary: Denies hematuria, Denies urinary frequency, Denies dysuria and Denies urinary urgency Musculoskeletal: Musculoskeletal: Denies back pain, Denies myalgias, Reports arthralgias (Left ankle), Reports joint swelling (Left ankle posteriorly) and Denies numbness Integumentary/Breasts: Skin/Breast: Denies pruritus, Denies erythema and Denies rash Neurologic: Denies confusion, Denies dizziness, Denies syncope, Denies headache(s), Denies focal weakness, Denies numbness and Denies weakness Psychiatric: Psychiatric: Denies anxiety and Denies confusion Endocrine: Endocrine: Denies excessive sweating and Denies fatigue Hematologic/Lymphatic: Hematologic/Lymphatic: Denies easy bleeding and Denies easy bruising Allergic/Immunologic: Allergic/Immunologic: Denies lip swelling, Denies tongue swelling and Denies wheezing PMFSH Past Medical History Medical History Bipolar disorder Methamphetamine use Opiate dependence Contusion of forearm, left Surgical History Surgical History Hx LEEP (loop electrosurgical excision procedure), cervix, Family History Family History Father Diabetes mellitus Heart disease Cerebrovascular accident Other Cancer Hypertension Kidney disease Social History Social History Smoking status: Current every day smoker Second hand tobacco smoke exposure: Yes Additional smoking assessment comments: 3 cigarettes per day Alcohol intake: never Substance use: never Substance use type: former substance user Do You Feel Safe in your Home?: Yes Lack of Transportation: No Lack of Food: Never True Current Housing: I Have Housing Concerned About Future Housing: No Difficulty Paying Gas/Electric Bills: No Difficulty Paying for Meds: No Currently Unemployed: No Education: High School Diploma/GED Difficulty w/ Childcare or Family Care: No Occupation/Education: occupation 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 [employer] Gender identity (if verbalized by the patient): Female Spiritual care concerns: No Exam Const: General: healthy appearing, no acute distress, alert and well nourished Nutritional Appearance: well nourished Orientation/consciousness: patient oriented x3 Limitations: no limitations HENMT: Head: normal to inspection Ears: external ears normal Face/Nose/Sinus: normal facial exam Face and sinus: normal facial exam Mouth: Yes moist mucous membranes Throat: posterior oropharynx normal Eyes: Conjunctivae: conjunctivae normal Pupils: Equal, round and reactive pupils present EOM: EOMs intact bilaterally Neck: Neck: normal visual inspection and no meningeal signs Chest: Chest palpation & inspection: normal inspection of the chest and no tenderness Resp: Effort & Inspection: normal respiratory effort and not labored Auscultation: clear to auscultation bilaterally, no crackles, no rhonchi and no wheezes Cardio: Rate: regular rate Rhythm: regular rhythm Heart sounds: no murmurs GI: Inspection: non-distended GI Palp: Yes Soft to palpation, No Tenderness to palpation present (GI), No Guarding due to palpation present (GI) and No Rebound tenderness present : General: Yes no CVA tenderness Back/Spine/Pelvis: Back: no CVA tenderness Cervical Spine: No Cervical spine tenderness Thoracic/Lumbar Spine: No thoracic spinal tenderness Skin: General skin exam: normal color Rashes: no rashes Wounds: no wounds Neuro: General: patient oriented x3, moves all extremities, no meningeal signs, no focal motor deficits and CN's II-XI intact bilaterally Cranial nerves: Yes Equal, round and reactive pupils present Speech: normal speech Motor exam (neuro): 5/5 motor strength present throughout Sensory Exam: normal sensation Extrem: General: normal to inspection and no clubbing, cyanosis or edema Other: There is a contusion at the posterior ankle on the left, at the Achilles region, with decreased range of motion of the left ankle secondary to pain. There is tenderness at that area with swelling and skin discoloration. There is no tenderness at either malleolus to palpation or in the entire left foot. Pulses are palpable 2+. Decreased range of motion of the toes secondary to pain at the Achilles region. No tenderness elsewhere in the left lower extremity or in the other extremities. Psych: Mental Status: mental status grossly normal Affect: normal affect Course Course Emergency Course: 35-year-old woman with a history of opiate use disorder, methamphetamine use, who got struck by the hitch of a loose trailer from a lawnmower 2 days ago in the posterior left ankle at the Achilles region, with resultant contusion and swelling in that area with tenderness to palpation. X-rays of the left ankle reveal no fracture. She received Toradol 60 mg IM as well as Robaxin and tramadol in the emergency room. She is agreeable with not being prescribed opiates. Discharge home on naproxen twice daily, Robaxin, and tramadol as needed. Weightbearing as tolerated. She is agreeable with the plan. All questions answered Vital Signs Vital signs: Vital Signs Temperature 37.0 C 04/23/25 00:17 Pulse Rate 92 04/23/25 00:17 Respiratory Rate 16 04/23/25 00:17 Blood Pressure 121/79 04/23/25 00:17 Pulse Oximetry 100 04/23/25 00:17 Oxygen Delivery Room Air 04/23/25 00:17 Temperature 37.0 C 04/23/25 00:17 Pulse Rate 78 04/23/25 01:24 Respiratory Rate 18 04/23/25 01:24 Blood Pressure 130/79 04/23/25 01:24 Pulse Oximetry 97 04/23/25 01:24 Oxygen Delivery Room Air 04/23/25 01:24 Medical Decision Making Vital Signs Vital Signs: Vital Signs Temperature 37.0 C 04/23/25 00:17 Pulse Rate 92 04/23/25 00:17 Respiratory Rate 16 04/23/25 00:17 Blood Pressure 121/79 04/23/25 00:17 Pulse Oximetry 100 04/23/25 00:17 Oxygen Delivery Room Air 04/23/25 00:17 Temperature 37.0 C 04/23/25 00:17 Pulse Rate 78 04/23/25 01:24 Respiratory Rate 18 04/23/25 01:24 Blood Pressure 130/79 04/23/25 01:24 Pulse Oximetry 97 04/23/25 01:24 Oxygen Delivery Room Air 04/23/25 01:24 Imaging Data My impression: X-ray left ankle: No acute osseous abnormality. Interpretation by ER physician. Discharge Plan Discharge Clinical Impression: Contusion of ankle, left Patient Disposition: Home Condition: Stable Instructions: Contusion in Adults (ED) Additional Instructions: You have a contusion of the left ankle. This will heal with time. X-rays did not reveal any broken bones Weight-bearing as tolerated Continue using the walking boot as tolerated to help relieve the pressure on the ankle For pain control, you may use Tylenol as much as 1000 mg per dose as often as 4 times a day as needed for [id number] pain or discomfort Naproxen twice daily, take with meals, for the next 10 days and then as needed Tramadol as needed for severe pain, use sparingly Robaxin to help relieve pain and relax the muscles and left lower extremity, as needed Follow-up with your primary care provider in the next 1-2 weeks for a re-evaluation Return if worse Patient Language: Norwegian Prescriptions: New naproxen 500 mg tablet 500 mg PO BID Qty: 30 0RF Rx Instructions: Take BID x 10 days, then BID as needed thereafter. tramadol 50 mg tablet 50 mg PO Q12H PRN (Reason: severe pain (scale score 7-10)) Qty: 14 0RF Rx Instructions: use sparingly methocarbamol 750 mg tablet 750 mg PO TID Qty: 30 0RF No Action valacyclovir [Valtrex] 1 gram tablet 1,000 mg PO BID 10 Days Qty: 20 0RF bupropion HCl 300 mg tablet extended release 24 hr 300 mg PO DAILY doxycycline monohydrate 100 mg capsule 100 mg PO BID 10 Days Qty: 20 0RF Follow-up/Referrals: Julia,MD Kojo [Primary Care Provider, [facility]] - 2 Weeks Referral Note: Contusion of left ankle, prescribed Robaxin, tramadol, and naproxen. Treated in the emergency room with tramadol Toradol and Robaxin. X-rays negative for fracture. Clinical Impression: Contusion of ankle, left Time of Disposition: 01:14
[2025-04-23] MEDS: traMADol HCL (*CRX) 50 MG TABLET 100 MG PO (01:07)
[2025-04-23] MEDS: KETOROLAC (*BKC) 60 MG/2 ML VIAL IM (01:07)
[2025-04-23 01:24] VITALS: BP 130/79; PULSE 78; RESP 18; O2SAT 97
== END 2025-04-23 01:24 | disposition home or self-care (01) ==
PROVIDERS: Emergency Provider Emergency Medicine; PCP Family Medicine
DX: S90.02XA Contusion of left ankle, initial encounter (principal); W22.8XXA Striking against or struck by other objects, initial encounter
CPT/HCPCS: 73610; 96372; 99283; A9270; J1885